=== PATIENT | female | born 1945 | race African-American/Black ===

== ENCOUNTER 2017-05-08 21:36 | Inpatient (IN) ==
[2017-05-08] MEDS ORDERED: LORazepam 2 MG/1 ML VIAL IV STA (22:01)
[2017-05-08] MEDS ORDERED: LORazepam 2 MG/1 ML VIAL ONE (22:02)
[2017-05-08] MEDS ORDERED: hydrALAZINE 20 MG/1 ML VIAL ONE (22:16)
[2017-05-08 22:22] LABS: Basophils # 0.1 10*3/uL (0.0-0.2); Basophils % 0.6 % (0.0-0.8); Eosinophils # 0.2 10*3/uL (0.0-0.87); Eosinophils % 2.3 % (0.00-10.9); Hematocrit 42.5 VOL% (35.7-47.0); Hemoglobin 14.9 GM/DL (12.0-16.0); Immature Granulocytes % 1.4 %; Immature Granulocytes Absolute 0.13 #; Lymphocytes # 1.7 10*3/uL (1.4-4.0); Lymphocytes % 18.2 % (21.3-54.2); Mean Corpuscular HGB Conc 35.1 GM/DL (32-36); Mean Corpuscular Hemoglobin 30 PG (27-34); Mean Platelet Volume 11.1 FL (9.6-12.0); Monocytes # 0.7 10*3/uL (0.11-0.8); Monocytes % 7.4 % (1.7-12.7); Neutrophils # 6.6 10*3/uL (1.4-7.4); Neutrophils % 70.1 % (38.7-73.9); Platelet Count 270 T/CUMM (130-400); Red Cell Distribution Width 12.4 % (9.3-17.3); White Blood Count 9.4 T/CUMM (4-12)
[2017-05-08 22:27] LABS: Apearance,Urine CLEAR (Clear); Bacteria,Urine Occasional /HPF (Few); Bilirubin,Urine Negative (Negative); Blood, Urine Small mg/dL (Negative); Glucose,Urine (UA) >=500 mg/dL (Negative); Ketones,Urine Negative (Negative); Nitrite,Urine Negative (Negative); Protein,Urine 100 MG/DL; RBC,Urine 19 /HPF (0-4); Squamous Epithelial Cell,Urine Occasional /HPF (0-10); Urine Color Yellow (Yellow); Urine Specific Gravity 1.024 (1.001-1.035); Urine Urobilinogen < 2.0 EU/DL (0.2-1.0); WBC,Urine 1 /HPF (0-6)
[2017-05-08 22:30] LABS: PT Patient Result 10.6 SECS; Partial Thromboplastin Time 23.5 SECS (0-40)
[2017-05-08 22:42] LABS: Alanine Aminotransferase 35 U/L (13-56); Albumin 3.5 G/DL (3.4-5.0); Alkaline Phosphatase 121 U/L (45-117); Aspartate Amino Transferase 15 U/L (0-37); Bilirubin,Total < 0.39 MG/DL (0.2-1.0); Blood Urea Nitrogen 15 MG/DL (7-18); Calcium 9.3 MG/DL (8.5-10.1); Glucose 382 MG/DL (74-106); Osmolality,Calculated 289.8 MOS/KG (273-304); Potassium 3.4 MMOL/L (3.5-5.1); Sodium 137 MMOL/L (136-145); Total Protein 8.1 G/DL (6.4-8.3)
[2017-05-08 22:44] LABS: Troponin I Only < 0.015 NG/ML (0.00-0.045)
[2017-05-08] MEDS ORDERED: SODIUM CHLORIDE 0.9% 1,000 ML IV STA (23:15)
[2017-05-09] MEDS ORDERED: ONDANSETRON 4 MG/2 ML VIAL IV PRN (00:16)
[2017-05-09] MEDS ORDERED: GLUCAGON 1 MG VIAL IM PRN (00:22)
[2017-05-09] MEDS ORDERED: DEXTROSE 50% 25 GM/50 ML SYRINGE IV PRN (00:22)
[2017-05-09] MEDS ORDERED: ASPIRIN 325 MG TABLET NG ONE (00:25)
[2017-05-09] MEDS ORDERED: hydrALAZINE 20 MG/1 ML VIAL IV STA (00:46)
[2017-05-09] MEDS: hydrALAZINE 20 MG/1 ML VIAL IV PRN (02:21)
[2017-05-09] MEDS: INSULIN LISPRO 100 UNIT/ML SUBCUT SCH ×3 (06:22→18:09)
[2017-05-09] MEDS ORDERED: ACETAMINOPHEN 325 MG/10.15 ML UDCUP PO PRN (06:26)
[2017-05-09] MEDS ORDERED: DILTIAZEM 50 MG/10 ML VIAL IV ONE (08:30)
[2017-05-09] MEDS: DILTIAZEM INJ 100 MG in SODIUM CHLORIDE 0.9% 100 ML IV SCH (08:52)
[2017-05-09] MEDS: ASPIRIN EC 81 MG TABLET PO SCH (08:59)
[2017-05-09] MEDS: ENOXAPARIN 40 MG/0.4 ML SYRINGE SUBCUT SCH (08:59)
[2017-05-09] MEDS: METOPROLOL TARTRATE 25 MG TABLET PO SCH ×2 (09:00→20:16)
[2017-05-09] MEDS: PANTOPRAZOLE 40 MG VIAL IV SCH (09:00)
[2017-05-09 09:29] LABS: Calcium 8.9 MG/DL (8.5-10.1); Magnesium 1.8 MG/DL (1.8-2.4); Osmolality,Calculated 290.4 MOS/KG (273-304); Potassium 3.3 MMOL/L (3.5-5.1)
[2017-05-09 09:38] LABS: Basophils % 0.2 % (0.0-0.8); Hematocrit 41.2 VOL% (35.7-47.0); Hemoglobin 14.5 GM/DL (12.0-16.0); Immature Granulocytes % 0.6 %; Lymphocytes % 6.4 % (21.3-54.2); Mean Corpuscular HGB Conc 35.2 GM/DL (32-36); Mean Corpuscular Hemoglobin 30 PG (27-34); Mean Corpuscular Volume 84.9 FL (87-102); Mean Platelet Volume 11.4 FL (9.6-12.0); Monocytes # 0.7 10*3/uL (0.11-0.8); Monocytes % 4.1 % (1.7-12.7); Neutrophils % 88.7 % (38.7-73.9); Platelet Count 287 T/CUMM (130-400); Red Blood Count 4.85 MC/CUMM (3.8-5.5); Red Cell Distribution Width 12.7 % (9.3-17.3); White Blood Count 15.8 T/CUMM (4-12)
[2017-05-09] MEDS: VANCOMYCIN INJ 1,000 MG in SODIUM CHLORIDE 0.9% 250 ML IV SCH ×2 (09:49→22:39)
[2017-05-09] MEDS: POTASSIUM CHLORIDE 20 MEQ/15 ML UDCUP PER TUBE PRN ×4 (10:00→16:13)
[2017-05-09 10:01] LABS: Calcium 8.8 MG/DL (8.5-10.1); Osmolality,Calculated 290.4 MOS/KG (273-304); Potassium 3.2 MMOL/L (3.5-5.1)
[2017-05-09] MEDS: PIPERACILLIN/TAZOBACTAM 3,375 MG in SODIUM CHLORIDE 0.9% 100 ML IV SCH ×2 (11:03→18:09)
[2017-05-09] MEDS ORDERED: LORazepam 2 MG/1 ML VIAL IV ONE (14:50)
[2017-05-09] MEDS ORDERED: LORazepam 2 MG/1 ML VIAL ONE (14:53)
[2017-05-09] MEDS ORDERED: MAGNESIUM SULF RIDER 2 GM in PREMIX 1 EACH IV ONE (15:30)
[2017-05-09] MEDS ORDERED: POTASSIUM CHLORIDE RIDER 10 MEQ in PREMIX 1 EACH IV ONE (16:00)
[2017-05-09] MEDS: ASCORBIC ACID 500 MG TABLET PO SCH ×2 (16:24→20:16)
[2017-05-09] MEDS: LORazepam 0.5 MG TABLET PO PRN (21:44)
[2017-05-10] MEDS: INSULIN LISPRO 100 UNIT/ML SUBCUT SCH ×4 (01:13→17:13)
[2017-05-10] MEDS: PIPERACILLIN/TAZOBACTAM 3,375 MG in SODIUM CHLORIDE 0.9% 100 ML IV SCH ×2 (02:40→11:00)
[2017-05-10] MEDS ORDERED: LORazepam 2 MG/1 ML VIAL IV ONE (03:15)
[2017-05-10] MEDS ORDERED: LORazepam 2 MG/1 ML VIAL ONE (03:16)
[2017-05-10 05:12] LABS: Basophils # 0.1 10*3/uL (0.0-0.2); Basophils % 0.4 % (0.0-0.8); Eosinophils # 0.1 10*3/uL (0.0-0.87); Eosinophils % 0.8 % (0.00-10.9); Hematocrit 39.7 VOL% (35.7-47.0); Hemoglobin 13.5 GM/DL (12.0-16.0); Immature Granulocytes % 0.5 %; Immature Granulocytes Absolute 0.06 #; Lymphocytes # 1.4 10*3/uL (1.4-4.0); Lymphocytes % 10.7 % (21.3-54.2); Mean Corpuscular Hemoglobin 30 PG (27-34); Mean Corpuscular Volume 87.8 FL (87-102); Mean Platelet Volume 11.2 FL (9.6-12.0); Monocytes # 1.4 10*3/uL (0.11-0.8); Monocytes % 10.5 % (1.7-12.7); Neutrophils # 10.2 10*3/uL (1.4-7.4); Neutrophils % 77.1 % (38.7-73.9); Platelet Count 228 T/CUMM (130-400); Red Blood Count 4.52 MC/CUMM (3.8-5.5); White Blood Count 13.2 T/CUMM (4-12)
[2017-05-10 05:42] LABS: Calcium 8.8 MG/DL (8.5-10.1); Magnesium 2.6 MG/DL (1.8-2.4); Potassium 3.9 MMOL/L (3.5-5.1)
[2017-05-10 05:52] LABS: Calcium 8.7 MG/DL (8.5-10.1)
[2017-05-10 06:02] LABS: Free T4 (Free Thyroxine) 1.03 NG/DL (0.76-1.46); Risk Ratio 5.67; Thyroid Stimulating Hormone 0.158 uIU/ml (0.358-3.74); VLDL CHOLESTEROL 38.6 MG/DL
[2017-05-10] MEDS: DILTIAZEM INJ 100 MG in SODIUM CHLORIDE 0.9% 100 ML IV SCH (07:45)
[2017-05-10] MEDS: METOPROLOL TARTRATE 25 MG TABLET PO SCH (08:22)
[2017-05-10] MEDS: PANTOPRAZOLE 40 MG VIAL IV SCH (08:22)
[2017-05-10] MEDS: ASPIRIN EC 81 MG TABLET PO SCH (08:22)
[2017-05-10] MEDS: ASCORBIC ACID 500 MG TABLET PO SCH ×2 (08:22→22:07)
[2017-05-10] MEDS: ENOXAPARIN 40 MG/0.4 ML SYRINGE SUBCUT SCH (08:22)
[2017-05-10] MEDS: VANCOMYCIN INJ 1,000 MG in SODIUM CHLORIDE 0.9% 250 ML IV SCH ×2 (08:54→22:08)
[2017-05-10] MEDS: LORazepam 0.5 MG TABLET PO PRN ×2 (10:44→18:45)
[2017-05-10] MEDS: amLODIPine 10 MG TABLET PER TUBE SCH (12:30)
[2017-05-10] MEDS: CARVEDILOL 12.5 MG TABLET PO SCH ×2 (12:30→22:06)
[2017-05-10] MEDS: ZIPRASIDONE 20 MG/1 ML VIAL IM PRN (19:20)
[2017-05-11] MEDS: hydrALAZINE 20 MG/1 ML VIAL IV PRN ×2 (00:09→09:47)
[2017-05-11] MEDS: INSULIN LISPRO 100 UNIT/ML SUBCUT SCH ×4 (00:11→17:29)
[2017-05-11 06:25] LABS: Albumin (SPE) 3.8 G/DL (3.2-5.3); Albumin (SPE) Rel % 55.1 %; Alpha 1 (SPE) 0.2 G/DL (0.1-0.4); Alpha 1 (SPE) Rel % 3.1 %; Alpha 2 (SPE) 0.7 G/DL (0.4-1.0); Alpha 2 (SPE) Rel % 10.3 %; Beta (SPE) 0.9 G/DL (0.5-1.1); Beta (SPE) Rel % 13.3 %; Gamma (SPE) 1.3 G/DL (0.7-1.7); Gamma (SPE) Rel % 18.2 %; Total Protein (Chem) 6.9 G/DL (6.4-8.3)
[2017-05-11 06:48] LABS: Basophils # 0.1 10*3/uL (0.0-0.2); Basophils % 0.6 % (0.0-0.8); Eosinophils # 0.2 10*3/uL (0.0-0.87); Eosinophils % 1.6 % (0.00-10.9); Immature Granulocytes Absolute 0.12 #; Lymphocytes # 1.8 10*3/uL (1.4-4.0); Lymphocytes % 14.6 % (21.3-54.2); Mean Corpuscular HGB Conc 34.1 GM/DL (32-36); Mean Corpuscular Hemoglobin 30 PG (27-34); Mean Platelet Volume 11.6 FL (9.6-12.0); Monocytes # 1.1 10*3/uL (0.11-0.8); Monocytes % 9.3 % (1.7-12.7); Neutrophils # 8.8 10*3/uL (1.4-7.4); Neutrophils % 72.9 % (38.7-73.9); Platelet Count 228 T/CUMM (130-400); Red Blood Count 4.71 MC/CUMM (3.8-5.5); Red Cell Distribution Width 12.5 % (9.3-17.3); White Blood Count 12.1 T/CUMM (4-12)
[2017-05-11 07:10] LABS: Calcium 8.5 MG/DL (8.5-10.1); Osmolality,Calculated 279.4 MOS/KG (273-304); Potassium 3.4 MMOL/L (3.5-5.1)
[2017-05-11] MEDS: DILTIAZEM INJ 100 MG in SODIUM CHLORIDE 0.9% 100 ML IV SCH (08:44)
[2017-05-11] MEDS: ASCORBIC ACID 500 MG TABLET PO SCH ×2 (08:52→20:32)
[2017-05-11] MEDS: amLODIPine 10 MG TABLET PER TUBE SCH (08:52)
[2017-05-11] MEDS: ASPIRIN EC 81 MG TABLET PO SCH (08:53)
[2017-05-11] MEDS: CARVEDILOL 12.5 MG TABLET PO SCH (08:53)
[2017-05-11] MEDS: PANTOPRAZOLE 40 MG VIAL IV SCH (08:54)
[2017-05-11] MEDS: VANCOMYCIN INJ 1,000 MG in SODIUM CHLORIDE 0.9% 250 ML IV SCH (10:35)
[2017-05-11] MEDS ORDERED: LORazepam 2 MG/1 ML VIAL IV ONE (10:47)
[2017-05-11] MEDS ORDERED: POTASSIUM CHLORIDE 20 MEQ/15 ML UDCUP PO PRN (11:05)
[2017-05-11] MEDS: amLODIPine 10 MG TABLET PO SCH (12:39)
[2017-05-11 16:35] LABS: Appearance,CSF Clear; Red Blood Cell,CSF 6 C/CUMM; White Blood Cell,CSF < 1 C/CUMM
[2017-05-11 18:17] LABS: Lymphocytes,CSF 76 %; Monocytes,CSF 8 %; Neutrophils,CSF 16 %
[2017-05-11] MEDS: CARVEDILOL 25 MG TABLET PO SCH (20:32)
[2017-05-11] MEDS: ROSUVASTATIN 10 MG TABLET PO SCH (20:32)
[2017-05-11] MEDS: ZIPRASIDONE 20 MG/1 ML VIAL IM PRN (20:32)
[2017-05-12] MEDS: VANCOMYCIN INJ 1,000 MG in SODIUM CHLORIDE 0.9% 250 ML IV SCH ×2 (00:28→12:31)
[2017-05-12] MEDS: INSULIN LISPRO 100 UNIT/ML SUBCUT SCH ×4 (00:35→18:19)
[2017-05-12 06:18] LABS: Basophils % 0.3 % (0.0-0.8); Eosinophils # 0.4 10*3/uL (0.0-0.87); Eosinophils % 4.3 % (0.00-10.9); Hematocrit 37.9 VOL% (35.7-47.0); Hemoglobin 13.2 GM/DL (12.0-16.0); Immature Granulocytes % 0.4 %; Immature Granulocytes Absolute 0.04 #; Lymphocytes # 1.5 10*3/uL (1.4-4.0); Lymphocytes % 16.5 % (21.3-54.2); Mean Corpuscular HGB Conc 34.8 GM/DL (32-36); Mean Corpuscular Hemoglobin 30 PG (27-34); Mean Corpuscular Volume 85.2 FL (87-102); Mean Platelet Volume 11.5 FL (9.6-12.0); Monocytes % 11.4 % (1.7-12.7); Neutrophils # 6.1 10*3/uL (1.4-7.4); Neutrophils % 67.1 % (38.7-73.9); Platelet Count 229 T/CUMM (130-400); Red Blood Count 4.45 MC/CUMM (3.8-5.5); Red Cell Distribution Width 12.4 % (9.3-17.3); White Blood Count 9.1 T/CUMM (4-12)
[2017-05-12 06:46] LABS: Calcium 8.7 MG/DL (8.5-10.1); Magnesium 2.3 MG/DL (1.8-2.4); Osmolality,Calculated 282.4 MOS/KG (273-304); Potassium 3.2 MMOL/L (3.5-5.1)
[2017-05-12 06:52] LABS: Calcium 8.4 MG/DL (8.5-10.1); Osmolality,Calculated 284.3 MOS/KG (273-304); Potassium 3.5 MMOL/L (3.5-5.1)
[2017-05-12] MEDS ORDERED: APIXABAN 5 MG TABLET PO SCH (09:00)
[2017-05-12] MEDS: ASCORBIC ACID 500 MG TABLET PO SCH ×2 (09:35→21:28)
[2017-05-12] MEDS: CARVEDILOL 25 MG TABLET PO SCH ×2 (09:35→21:28)
[2017-05-12] MEDS: amLODIPine 10 MG TABLET PO SCH (09:35)
[2017-05-12] MEDS: sitaGLIPtin 25 MG TABLET PO SCH (09:35)
[2017-05-12] MEDS ORDERED: POTASSIUM CHLORIDE 20 MEQ TABLET PO ONE (12:16)
[2017-05-12] MEDS: ROSUVASTATIN 10 MG TABLET PO SCH (21:28)
[2017-05-12] MEDS: ZIPRASIDONE 20 MG/1 ML VIAL IM PRN (21:36)
[2017-05-12] MEDS: LORazepam 0.5 MG TABLET PO PRN (23:14)
[2017-05-13] MEDS: INSULIN LISPRO 100 UNIT/ML SUBCUT SCH ×2 (00:31→06:19)
[2017-05-13] MEDS: VANCOMYCIN INJ 1,000 MG in SODIUM CHLORIDE 0.9% 250 ML IV SCH (00:34)
[2017-05-13 06:07] LABS: Basophils % 0.4 % (0.0-0.8); Eosinophils # 0.4 10*3/uL (0.0-0.87); Eosinophils % 4.3 % (0.00-10.9); Hemoglobin 13.3 GM/DL (12.0-16.0); Immature Granulocytes % 0.5 %; Immature Granulocytes Absolute 0.05 #; Lymphocytes # 1.4 10*3/uL (1.4-4.0); Lymphocytes % 13.5 % (21.3-54.2); Mean Corpuscular Hemoglobin 30 PG (27-34); Mean Corpuscular Volume 85.2 FL (87-102); Mean Platelet Volume 10.7 FL (9.6-12.0); Monocytes # 1.5 10*3/uL (0.11-0.8); Monocytes % 14.1 % (1.7-12.7); Neutrophils # 6.9 10*3/uL (1.4-7.4); Neutrophils % 67.2 % (38.7-73.9); Platelet Count 240 T/CUMM (130-400); Red Blood Count 4.46 MC/CUMM (3.8-5.5); Red Cell Distribution Width 12.3 % (9.3-17.3); White Blood Count 10.3 T/CUMM (4-12)
[2017-05-13 06:42] LABS: Calcium 8.8 MG/DL (8.5-10.1); Osmolality,Calculated 284.1 MOS/KG (273-304); Potassium 3.3 MMOL/L (3.5-5.1)
[2017-05-13 06:43] LABS: Calcium 8.9 MG/DL (8.5-10.1); Osmolality,Calculated 282.3 MOS/KG (273-304); Potassium 3.2 MMOL/L (3.5-5.1)
[2017-05-13] MEDS: sitaGLIPtin 25 MG TABLET PO SCH (08:46)
[2017-05-13] MEDS: CARVEDILOL 25 MG TABLET PO SCH (08:46)
[2017-05-13] MEDS: amLODIPine 10 MG TABLET PO SCH (08:46)
[2017-05-13] MEDS: ASCORBIC ACID 500 MG TABLET PO SCH (08:46)
[2017-05-13] MEDS ORDERED: ASPIRIN EC 81 MG TABLET PO SCH (09:00)
[2017-05-13] MEDS ORDERED: POTASSIUM CHLORIDE 20 MEQ TABLET PO SCH (09:00)
[2017-05-13] MEDS ORDERED: DEXTROSE 50% 25 GM/50 ML VIAL IV PRN (11:00)
[2017-05-13 11:59] VITALS: BP 142/78
[2017-05-17] MEDS ORDERED: cloNIDine 0.3 MG/24 HR PATCH TRANSDERM SCH (09:00)
== END 2017-05-13 12:38 | disposition home health service (06) | DRG 690 ==
LOC: EDBD → EDUNIT# → N.ED 21:36 → N.EDINP 05-09 00:18 → SUATTDRO 05-09 00:18 → N.ICU 05-09 01:13 → N.TELEN 05-11 17:51
PROVIDERS: ADMIT Internal Medicine; ATTEND Internal Medicine

== ENCOUNTER 2018-06-14 09:35 | Inpatient (IN) ==
[2018-06-14] MEDS ORDERED: ONDANSETRON 4 MG/2 ML VIAL IV STA (10:27)
[2018-06-14] MEDS ORDERED: SODIUM CHLORIDE 0.9% 500 ML IV STA (10:27)
[2018-06-14 10:47] LABS: Apearance,Urine CLEAR (Clear); Bilirubin,Urine Negative (Negative); Blood, Urine Negative (Negative); Glucose,Urine (UA) Negative (Negative); Ketones,Urine Negative (Negative); Mucus,Urine Occasional /LPF (Occasional); Nitrite,Urine Negative (Negative); Protein,Urine >=500 MG/DL; RBC,Urine 1 /HPF (0-4); Squamous Epithelial Cell,Urine Occasional /HPF (0-10); Urine Color Yellow (Yellow); Urine Specific Gravity 1.012 (1.001-1.035); Urine Urobilinogen < 2.0 EU/DL (0.2-1.0); WBC,Urine 3 /HPF (0-6)
[2018-06-14 11:02] LABS: Barbiturates Screen,Urine Negative (Negative); Benzodiazepines Screen,Urine Positive (Negative); Cannabinoid Screen,Urine Negative (Negative); Opiate Screen,Urine Negative (Negative); Phencyclidine Screen,Urine Negative (Negative)
[2018-06-14 11:10] LABS: Basophils # 0.1 10*3/uL (0.0-0.2); Basophils % 0.4 % (0.0-0.8); Eosinophils # 0.2 10*3/uL (0.0-0.87); Eosinophils % 1.1 % (0.00-10.9); Hematocrit 43.1 VOL% (35.7-47.0); Hemoglobin 14.4 GM/DL (12.0-16.0); Immature Granulocytes % 0.6 %; Immature Granulocytes Absolute 0.09 #; Lymphocytes # 1.1 10*3/uL (1.4-4.0); Lymphocytes % 7.2 % (21.3-54.2); Mean Corpuscular HGB Conc 33.4 GM/DL (32-36); Mean Corpuscular Hemoglobin 30 PG (27-34); Monocytes # 0.9 10*3/uL (0.11-0.8); Monocytes % 5.7 % (1.7-12.7); Neutrophils # 12.6 10*3/uL (1.4-7.4); Platelet Count 218 T/CUMM (130-400); Red Blood Count 4.79 MC/CUMM (3.8-5.5); Red Cell Distribution Width 12.6 % (9.3-17.3); White Blood Count 14.8 T/CUMM (4-12)
[2018-06-14 11:15] LABS: INR 1.1; PT Patient Result 11.3 SECS
[2018-06-14 11:28] LABS: Platelet Estimate Normal
[2018-06-14 11:33] LABS: Ammonia 31 UMOL/L (11-32)
[2018-06-14 11:37] LABS: Alanine Aminotransferase 24 U/L (13-56); Albumin 3.9 G/DL (3.4-5.0); Alkaline Phosphatase 68 U/L (45-117); Aspartate Amino Transferase 28 U/L (0-37); Blood Urea Nitrogen 10 MG/DL (7-18); Calcium 9.1 MG/DL (8.5-10.1); Glucose 162 MG/DL (74-106); Osmolality,Calculated 281.4 MOS/KG (273-304); Potassium 3.5 MMOL/L (3.5-5.1); Sodium 140 MMOL/L (136-145); Total Protein 8.2 G/DL (6.4-8.3)
[2018-06-14 12:00] LABS: Troponin I < 0.015 NG/ML (0.00-0.045)
[2018-06-14] MEDS ORDERED: ONDANSETRON 4 MG/2 ML VIAL IV PRN (15:15)
[2018-06-14] MEDS ORDERED: LABETALOL 20 MG/4 ML SYRINGE IV PRN (15:15)
[2018-06-14] MEDS: SODIUM CHLORIDE 0.9% 1,000 ML IV SCH (16:30)
[2018-06-14] MEDS: CLOPIDOGREL 75 MG TABLET PO SCH (16:30)
[2018-06-14] MEDS ORDERED: GLUCAGON 1 MG VIAL IM PRN ×2 (16:52→17:53)
[2018-06-14] MEDS ORDERED: DEXTROSE 50% 25 GM/50 ML VIAL IV PRN ×2 (16:52→17:53)
[2018-06-14] MEDS: INSULIN LISPRO 100 UNIT/ML SUBCUT SCH (22:32)
[2018-06-15] MEDS: SODIUM CHLORIDE 0.9% 1,000 ML IV SCH ×3 (01:39→16:51)
[2018-06-15 04:19] LABS: Basophils # 0.1 10*3/uL (0.0-0.2); Basophils % 0.6 % (0.0-0.8); Eosinophils # 0.2 10*3/uL (0.0-0.87); Eosinophils % 2.4 % (0.00-10.9); Hematocrit 35.1 VOL% (35.7-47.0); Hemoglobin 11.8 GM/DL (12.0-16.0); Immature Granulocytes % 0.4 %; Immature Granulocytes Absolute 0.04 #; Lymphocytes # 1.5 10*3/uL (1.4-4.0); Lymphocytes % 16.8 % (21.3-54.2); Mean Corpuscular HGB Conc 33.6 GM/DL (32-36); Mean Corpuscular Hemoglobin 30 PG (27-34); Mean Corpuscular Volume 89.1 FL (87-102); Mean Platelet Volume 12.1 FL (9.6-12.0); Monocytes # 1.2 10*3/uL (0.11-0.8); Monocytes % 12.9 % (1.7-12.7); Neutrophils % 66.9 % (38.7-73.9); Platelet Count 202 T/CUMM (130-400); Red Blood Count 3.94 MC/CUMM (3.8-5.5); Red Cell Distribution Width 12.7 % (9.3-17.3)
[2018-06-15 04:59] LABS: Alanine Aminotransferase 21 U/L (13-56); Albumin 2.7 G/DL (3.4-5.0); Alkaline Phosphatase 57 U/L (45-117); Aspartate Amino Transferase 35 U/L (0-37); Bilirubin,Total < 0.39 MG/DL (0.2-1.0); Blood Urea Nitrogen 7 MG/DL (7-18); Calcium 8.2 MG/DL (8.5-10.1); Cholesterol 181 MG/DL (50-200); Glucose 114 MG/DL (74-106); HDL Cholesterol 32 MG/DL (40-60); Osmolality,Calculated 279.3 MOS/KG (273-304); Potassium 3.5 MMOL/L (3.5-5.1); Risk Ratio 5.66; Sodium 141 MMOL/L (136-145); Total Protein 6.8 G/DL (6.4-8.3); Triglycerides 168 MG/DL (2-150); VLDL CHOLESTEROL 33.6 MG/DL
[2018-06-15] MEDS ORDERED: LORazepam 2 MG/1 ML VIAL IV ONE (07:30)
[2018-06-15] MEDS: INSULIN LISPRO 100 UNIT/ML SUBCUT SCH ×3 (08:08→16:51)
[2018-06-15] MEDS: CLOPIDOGREL 75 MG TABLET PO SCH (09:21)
[2018-06-15] MEDS: PANTOPRAZOLE 40 MG TABLET PO SCH (09:21)
[2018-06-15] MEDS: ASPIRIN EC 81 MG TABLET PO SCH (09:21)
[2018-06-15] MEDS: levETIRAcetam 500 MG TABLET PO SCH (10:18)
[2018-06-15] MEDS: CARVEDILOL 25 MG TABLET PO SCH (10:18)
[2018-06-15] MEDS: amLODIPine 10 MG TABLET PO SCH (10:18)
[2018-06-16] MEDS: INSULIN LISPRO 100 UNIT/ML SUBCUT SCH ×5 (00:08→22:12)
[2018-06-16] MEDS: CARVEDILOL 25 MG TABLET PO SCH ×3 (00:15→21:52)
[2018-06-16] MEDS: levETIRAcetam 500 MG TABLET PO SCH ×3 (00:15→21:52)
[2018-06-16] MEDS: ATORVASTATIN 20 MG TABLET PO SCH ×2 (00:15→21:52)
[2018-06-16] MEDS: SODIUM CHLORIDE 0.9% 1,000 ML IV SCH ×3 (04:47→21:56)
[2018-06-16 05:47] LABS: Basophils # 0.1 10*3/uL (0.0-0.2); Basophils % 0.5 % (0.0-0.8); Eosinophils # 0.4 10*3/uL (0.0-0.87); Eosinophils % 3.2 % (0.00-10.9); Hematocrit 36.6 VOL% (35.7-47.0); Hemoglobin 12.2 GM/DL (12.0-16.0); Immature Granulocytes % 0.4 %; Immature Granulocytes Absolute 0.05 #; Lymphocytes # 1.4 10*3/uL (1.4-4.0); Lymphocytes % 11.8 % (21.3-54.2); Mean Corpuscular HGB Conc 33.3 GM/DL (32-36); Mean Corpuscular Hemoglobin 30 PG (27-34); Mean Corpuscular Volume 89.7 FL (87-102); Mean Platelet Volume 10.9 FL (9.6-12.0); Monocytes # 1.2 10*3/uL (0.11-0.8); Monocytes % 10.2 % (1.7-12.7); Neutrophils # 8.6 10*3/uL (1.4-7.4); Neutrophils % 73.9 % (38.7-73.9); Platelet Count 243 T/CUMM (130-400); Red Blood Count 4.08 MC/CUMM (3.8-5.5); Red Cell Distribution Width 12.6 % (9.3-17.3); White Blood Count 11.7 T/CUMM (4-12)
[2018-06-16 06:07] LABS: Albumin 3.1 G/DL (3.4-5.0); Bilirubin,Total 0.8 MG/DL (0.2-1.0); Calcium 8.6 MG/DL (8.5-10.1); Osmolality,Calculated 281.3 MOS/KG (273-304); Potassium 3.3 MMOL/L (3.5-5.1); Total Protein 7.2 G/DL (6.4-8.3)
[2018-06-16] MEDS: ASPIRIN EC 81 MG TABLET PO SCH (09:08)
[2018-06-16] MEDS: PANTOPRAZOLE 40 MG TABLET PO SCH (09:08)
[2018-06-16] MEDS: CLOPIDOGREL 75 MG TABLET PO SCH (09:08)
[2018-06-16] MEDS: amLODIPine 10 MG TABLET PO SCH (09:08)
[2018-06-16] MEDS: POTASSIUM CHLORIDE 20 MEQ TABLET PO PRN ×3 (09:16→14:45)
[2018-06-16] MEDS ORDERED: ACETAMINOPHEN 325 MG TABLET PO PRN (13:25)
[2018-06-17 00:33] LABS: Apearance,Urine CLOUDY (Clear); Bacteria,Urine Many /HPF (Few); Bilirubin,Urine Negative (Negative); Blood, Urine Large mg/dL (Negative); Glucose,Urine (UA) 150 mg/dL (Negative); Ketones,Urine Negative (Negative); Nitrite,Urine Positive (Negative); Protein,Urine 30 MG/DL; RBC,Urine 705 /HPF (0-4); Squamous Epithelial Cell,Urine Few /HPF (0-10); Urine Color Yellow (Yellow); Urine Specific Gravity 1.013 (1.001-1.035); Urine Urobilinogen < 2.0 EU/DL (0.2-1.0); WBC,Urine 165 /HPF (0-6)
[2018-06-17] MEDS: SODIUM CHLORIDE 0.9% 1,000 ML IV SCH ×3 (04:41→18:09)
[2018-06-17 05:02] LABS: Basophils % 0.4 % (0.0-0.8); Eosinophils # 0.4 10*3/uL (0.0-0.87); Eosinophils % 4.1 % (0.00-10.9); Hematocrit 36.2 VOL% (35.7-47.0); Hemoglobin 11.8 GM/DL (12.0-16.0); Immature Granulocytes % 0.4 %; Immature Granulocytes Absolute 0.04 #; Lymphocytes # 1.5 10*3/uL (1.4-4.0); Lymphocytes % 16.1 % (21.3-54.2); Mean Corpuscular HGB Conc 32.6 GM/DL (32-36); Mean Corpuscular Hemoglobin 29 PG (27-34); Mean Platelet Volume 11.4 FL (9.6-12.0); Neutrophils # 6.3 10*3/uL (1.4-7.4); Platelet Count 248 T/CUMM (130-400); Red Blood Count 4.02 MC/CUMM (3.8-5.5); Red Cell Distribution Width 12.6 % (9.3-17.3); White Blood Count 9.3 T/CUMM (4-12)
[2018-06-17 05:20] LABS: Bilirubin,Total 0.7 MG/DL (0.2-1.0); Calcium 8.6 MG/DL (8.5-10.1); Osmolality,Calculated 286.1 MOS/KG (273-304); Potassium 3.4 MMOL/L (3.5-5.1)
[2018-06-17] MEDS: cefTRIAXone 1,000 MG in SYRINGE 1 EACH IV SCH (06:10)
[2018-06-17] MEDS: INSULIN LISPRO 100 UNIT/ML SUBCUT SCH ×4 (08:40→20:15)
[2018-06-17] MEDS: levETIRAcetam 500 MG TABLET PO SCH ×2 (09:21→20:12)
[2018-06-17] MEDS: ASPIRIN EC 81 MG TABLET PO SCH (09:21)
[2018-06-17] MEDS: amLODIPine 10 MG TABLET PO SCH (09:21)
[2018-06-17] MEDS: PANTOPRAZOLE 40 MG TABLET PO SCH (09:21)
[2018-06-17] MEDS: CLOPIDOGREL 75 MG TABLET PO SCH (09:21)
[2018-06-17] MEDS: CARVEDILOL 25 MG TABLET PO SCH ×2 (09:21→20:12)
[2018-06-17] MEDS: POTASSIUM CHLORIDE 20 MEQ TABLET PO PRN ×3 (09:25→13:36)
[2018-06-17] MEDS ORDERED: ATORVASTATIN 20 MG TABLET PO SCH (14:08)
[2018-06-18] MEDS: SODIUM CHLORIDE 0.9% 1,000 ML IV SCH (03:03)
[2018-06-18] MEDS: cefTRIAXone 1,000 MG in SYRINGE 1 EACH IV SCH (05:35)
[2018-06-18] MEDS: ASPIRIN EC 81 MG TABLET PO SCH (09:06)
[2018-06-18] MEDS: PANTOPRAZOLE 40 MG TABLET PO SCH (09:06)
[2018-06-18] MEDS: INSULIN LISPRO 100 UNIT/ML SUBCUT SCH ×2 (09:06→11:10)
[2018-06-18] MEDS: levETIRAcetam 500 MG TABLET PO SCH (09:06)
[2018-06-18] MEDS: CLOPIDOGREL 75 MG TABLET PO SCH (09:06)
[2018-06-18] MEDS: amLODIPine 10 MG TABLET PO SCH (09:06)
[2018-06-18] MEDS: CARVEDILOL 25 MG TABLET PO SCH (09:06)
[2018-06-18 11:52] VITALS: BP 144/92
== END 2018-06-18 11:50 | disposition home health service (06) | DRG 65 ==
LOC: EDUNIT# → EDBD → N.ED 09:35 → SUATTDRO 14:19 → N.EDINP 14:19 → N.ICU 14:38 → N.5E 06-15 11:46
PROVIDERS: ADMIT Internal Medicine; ATTEND Internal Medicine Infectious Disease

== ENCOUNTER 2019-07-01 09:57 | Inpatient (IN) ==
[2019-07-01] MEDS ORDERED: LORazepam 2 MG/1 ML VIAL IV STA (10:10)
[2019-07-01] MEDS ORDERED: FOSPHENYTOIN 1,000 MG.PE in SODIUM CHLORIDE 0.9% 250 ML IV STA (10:10)
[2019-07-01] MEDS ORDERED: hydrALAZINE 20 MG/1 ML VIAL IV STA (10:21)
[2019-07-01 10:31] LABS: Basophils % 0.3 % (0.0-0.8); Eosinophils % 0.1 % (0.00-10.9); Hematocrit 39.8 VOL% (35.7-47.0); Hemoglobin 13.4 GM/DL (12.0-16.0); Immature Granulocytes % 0.5 %; Immature Granulocytes Absolute 0.07 #; Lymphocytes % 6.5 % (21.3-54.2); Mean Corpuscular HGB Conc 33.7 GM/DL (32-36); Mean Corpuscular Volume 88.2 FL (87-102); Monocytes % 2.9 % (1.7-12.7); Neutrophils % 89.7 % (38.7-73.9); Platelet Count 276 T/CUMM (130-400); Red Blood Count 4.51 MC/CUMM (3.8-5.5); Red Cell Distribution Width 12.3 % (9.3-17.3); White Blood Count 15.5 T/CUMM (4-12)
[2019-07-01 10:54] LABS: Alanine Aminotransferase 26 U/L (13-56); Albumin 4.2 G/DL (3.4-5.0); Alkaline Phosphatase 79 U/L (45-117); Aspartate Amino Transferase 24 U/L (0-37); Blood Urea Nitrogen 15 MG/DL (7-18); Calcium 9.4 MG/DL (8.5-10.1); Glucose 114 MG/DL (74-106); Osmolality,Calculated 274.8 MOS/KG (273-304); Total Protein 8.4 G/DL (6.4-8.3); Troponin I < 0.015 NG/ML (0.00-0.045)
[2019-07-01 10:56] LABS: Estimated Glom Filtration Rate 0 ML/MIN
[2019-07-01] MEDS ORDERED: FOSPHENYTOIN 500 MG.PE/10 ML VIAL ONE (10:56)
[2019-07-01 11:06] LABS: Prolactin 23.1 NG/ML
[2019-07-01] MEDS ORDERED: MAGNESIUM SULF RIDER 2 GM in PREMIX 1 EACH IV STA (11:27)
[2019-07-01 11:30] LABS: Apearance,Urine CLEAR (Clear); Bacteria,Urine Occasional /HPF (Few); Bilirubin,Urine Negative (Negative); Blood, Urine Small mg/dL (Negative); Glucose,Urine (UA) Negative (Negative); Ketones,Urine 20 mg/dL (Negative); Mucus,Urine Occasional /LPF (Occasional); Nitrite,Urine Negative (Negative); Protein,Urine 30 MG/DL; RBC,Urine 1 /HPF (0-4); Urine Color Straw (Yellow); Urine Specific Gravity 1.012 (1.001-1.035); Urine Urobilinogen < 2.0 EU/DL (0.2-1.0); WBC,Urine <1 /HPF (0-6)
[2019-07-01 13:05] LABS: Barbiturates Screen,Urine Negative (Negative); Benzodiazepines Screen,Urine Positive (Negative); Cannabinoid Screen,Urine Negative (Negative); Opiate Screen,Urine Negative (Negative); Phencyclidine Screen,Urine Negative (Negative)
[2019-07-01] MEDS ORDERED: ONDANSETRON 4 MG/2 ML VIAL IV PRN (13:44)
[2019-07-01] MEDS ORDERED: ACETAMINOPHEN 325 MG TABLET PO PRN (13:44)
[2019-07-01] MEDS ORDERED: DEXTROSE 10% 250 ML BAG IV PRN (13:46)
[2019-07-01] MEDS ORDERED: GLUCAGON 1 MG VIAL IM PRN (13:46)
[2019-07-01] MEDS ORDERED: INFLUENZA VIRUS VACCINE 0.5 ML SYRINGE IM ONE (16:43)
[2019-07-01] MEDS ORDERED: PNEUMOCOCCAL VACCINE (13 VALENT) 0.5 ML SYRINGE IM ONE (16:47)
[2019-07-01] MEDS: INSULIN LISPRO 100 UNIT/ML SUBCUT SCH ×2 (17:24→22:16)
[2019-07-01] MEDS: carvediloL 25 MG TABLET PO SCH (22:17)
[2019-07-01] MEDS: ATORVASTATIN 20 MG TABLET PO SCH (22:17)
[2019-07-01] MEDS: MAGNESIUM CHLORIDE 64 MG TABLET PO SCH (22:17)
[2019-07-02 05:13] LABS: Basophils # 0.1 10*3/uL (0.0-0.2); Basophils % 0.5 % (0.0-0.8); Hematocrit 38.2 VOL% (35.7-47.0); Hemoglobin 12.8 GM/DL (12.0-16.0); Immature Granulocytes % 0.5 %; Immature Granulocytes Absolute 0.07 #; Lymphocytes # 1.5 10*3/uL (1.4-4.0); Lymphocytes % 10.2 % (21.3-54.2); Mean Corpuscular HGB Conc 33.5 GM/DL (32-36); Mean Corpuscular Volume 87.8 FL (87-102); Monocytes % 13.9 % (1.7-12.7); Neutrophils % 74.9 % (38.7-73.9); Platelet Count 271 T/CUMM (130-400); Red Blood Count 4.35 MC/CUMM (3.8-5.5); Red Cell Distribution Width 12.7 % (9.3-17.3); White Blood Count 14.5 T/CUMM (4-12)
[2019-07-02 05:42] LABS: Risk Ratio 3.68; VLDL CHOLESTEROL 22.2 MG/DL
[2019-07-02 05:51] LABS: Albumin 3.6 G/DL (3.4-5.0); Bilirubin,Total 0.7 MG/DL (0.2-1.0); Calcium 8.9 MG/DL (8.5-10.1); Osmolality,Calculated 277.7 MOS/KG (273-304); Thyroid Stimulating Hormone 0.341 uIU/ml (0.358-3.74); Total Protein 7.7 G/DL (6.4-8.3)
[2019-07-02] MEDS: INSULIN LISPRO 100 UNIT/ML SUBCUT SCH ×4 (08:00→21:05)
[2019-07-02 08:57] LABS: Free T4 (Free Thyroxine) 1.11 NG/DL (0.76-1.46)
[2019-07-02] MEDS ORDERED: CLOPIDOGREL 75 MG TABLET PO SCH (09:00)
[2019-07-02] MEDS ORDERED: PANTOPRAZOLE 40 MG TABLET PO SCH (09:00)
[2019-07-02] MEDS: carvediloL 25 MG TABLET PO SCH ×2 (10:04→18:03)
[2019-07-02] MEDS: POTASSIUM CHLORIDE 8 MEQ CAPSULE PO SCH (10:05)
[2019-07-02] MEDS: FERROUS SULFATE 325 MG TABLET PO SCH (10:05)
[2019-07-02] MEDS: MAGNESIUM CHLORIDE 64 MG TABLET PO SCH ×2 (10:06→21:06)
[2019-07-02 10:16] LABS: Apearance,Urine Slightly Hazy (Clear); Bacteria,Urine Occasional /HPF (Few); Bilirubin,Urine Negative (Negative); Blood, Urine Large mg/dL (Negative); Glucose,Urine (UA) 50 mg/dL (Negative); Ketones,Urine 80 mg/dL (Negative); Mucus,Urine Occasional /LPF (Occasional); Nitrite,Urine Negative (Negative); Protein,Urine 30 MG/DL; RBC,Urine 288 /HPF (0-4); Squamous Epithelial Cell,Urine Occasional /HPF (0-10); Urine Color Yellow (Yellow); Urine Specific Gravity 1.018 (1.001-1.035); Urine Urobilinogen < 2.0 EU/DL (0.2-1.0); WBC,Urine 43 /HPF (0-6)
[2019-07-02] MEDS ORDERED: PIPERACILLIN/TAZOBACTAM 3,375 MG in SODIUM CHLORIDE 0.9% 100 ML IV SCH (11:00)
[2019-07-02] MEDS: cefTRIAXone 2,000 MG in SYRINGE 1 EACH IV SCH ×2 (12:15→23:18)
[2019-07-02] MEDS: AMPICILLIN INJ 2,000 MG in SODIUM CHLORIDE 0.9% 100 ML IV SCH ×3 (13:54→21:00)
[2019-07-02] MEDS: LACTATED RINGERS 1,000 ML IV SCH (13:54)
[2019-07-02] MEDS ORDERED: hydrALAZINE 20 MG/1 ML VIAL IV PRN (13:58)
[2019-07-02] MEDS ORDERED: AMINO ACIDS/DEXT/LYTES 4.25-5% 2,000 ML IV SCH (14:00)
[2019-07-02] MEDS ORDERED: ACETAMINOPHEN 650 MG SUPP RECTAL PRN (14:19)
[2019-07-02] MEDS: ACYCLOVIR INJ 500 MG in SODIUM CHLORIDE 0.9% 100 ML IV SCH ×2 (15:05→22:14)
[2019-07-02] MEDS: cloNIDine 0.3 MG/24 HR PATCH TRANSDERM SCH (15:11)
[2019-07-02] MEDS: VANCOMYCIN INJ 750 MG in SODIUM CHLORIDE 0.9% 250 ML IV SCH (17:08)
[2019-07-02 17:27] LABS: INR 1.1; PT Patient Result 11.9 SECS (9.6-12.2); Partial Thromboplastin Time 25.8 SECS (20.8-36.0)
[2019-07-02] MEDS ORDERED: ENOXAPARIN 40 MG/0.4 ML SYRINGE SUBCUT SCH (21:00)
[2019-07-02] MEDS: ATORVASTATIN 20 MG TABLET PO SCH (21:06)
[2019-07-02] MEDS: LACOSAMIDE INJ 200 MG in SODIUM CHLORIDE 0.9% 50 ML IV SCH (21:38)
[2019-07-03] MEDS: AMPICILLIN INJ 2,000 MG in SODIUM CHLORIDE 0.9% 100 ML IV SCH ×7 (02:30→21:25)
[2019-07-03] MEDS: ACYCLOVIR INJ 500 MG in SODIUM CHLORIDE 0.9% 100 ML IV SCH ×3 (04:39→23:09)
[2019-07-03 05:07] LABS: Basophils % 0.4 % (0.0-0.8); Eosinophils % 0.2 % (0.00-10.9); Hematocrit 30.2 VOL% (35.7-47.0); Hemoglobin 9.9 GM/DL (12.0-16.0); Immature Granulocytes % 0.4 %; Immature Granulocytes Absolute 0.04 #; Lymphocytes # 1.5 10*3/uL (1.4-4.0); Lymphocytes % 15.9 % (21.3-54.2); Mean Corpuscular HGB Conc 32.8 GM/DL (32-36); Mean Corpuscular Volume 89.9 FL (87-102); Mean Platelet Volume 11.3 FL (9.6-12.0); Monocytes % 16.8 % (1.7-12.7); Neutrophils % 66.3 % (38.7-73.9); Platelet Count 181 T/CUMM (130-400); Red Blood Count 3.36 MC/CUMM (3.8-5.5); Red Cell Distribution Width 12.9 % (9.3-17.3); White Blood Count 9.7 T/CUMM (4-12)
[2019-07-03 05:42] LABS: Albumin 1.9 G/DL (3.4-5.0); Bilirubin,Total 0.7 MG/DL (0.2-1.0); Calcium 7.5 MG/DL (8.5-10.1); Total Protein 4.1 G/DL (6.4-8.3)
[2019-07-03 06:12] LABS: Anisocytosis Slight; Lymphocytes 12 % (20-55); Platelet Estimate Normal; Segmented Neutrophils 76 % (50-85); Total Cells Counted 100
[2019-07-03 06:13] LABS: Poikilocytosis Slight; Spherocytes Slight
[2019-07-03] MEDS: LACTATED RINGERS 1,000 ML IV SCH ×2 (06:19→23:10)
[2019-07-03] MEDS ORDERED: MAGNESIUM SULF RIDER 4 GM in PREMIX 1 EACH IV ONE (07:39)
[2019-07-03] MEDS: INSULIN LISPRO 100 UNIT/ML SUBCUT SCH ×4 (08:15→21:35)
[2019-07-03] MEDS: LACOSAMIDE INJ 200 MG in SODIUM CHLORIDE 0.9% 50 ML IV SCH ×2 (09:25→23:10)
[2019-07-03] MEDS: MAGNESIUM CHLORIDE 64 MG TABLET PO SCH ×2 (09:46→21:34)
[2019-07-03] MEDS: POTASSIUM CHLORIDE 8 MEQ CAPSULE PO SCH (09:46)
[2019-07-03] MEDS: carvediloL 25 MG TABLET PO SCH ×2 (09:46→16:37)
[2019-07-03] MEDS: FERROUS SULFATE 325 MG TABLET PO SCH (09:46)
[2019-07-03] MEDS: VANCOMYCIN INJ 750 MG in SODIUM CHLORIDE 0.9% 250 ML IV SCH ×2 (10:23→22:09)
[2019-07-03] MEDS: cefTRIAXone 2,000 MG in SYRINGE 1 EACH IV SCH ×2 (11:58→23:51)
[2019-07-03] MEDS: ASPIRIN EC 325 MG TABLET PO SCH (15:09)
[2019-07-03] MEDS: ATORVASTATIN 20 MG TABLET PO SCH (21:34)
[2019-07-04] MEDS: LACTATED RINGERS 1,000 ML IV SCH ×3 (02:37→17:19)
[2019-07-04] MEDS: AMPICILLIN INJ 2,000 MG in SODIUM CHLORIDE 0.9% 100 ML IV SCH ×4 (04:05→14:22)
[2019-07-04] MEDS: ACYCLOVIR INJ 500 MG in SODIUM CHLORIDE 0.9% 100 ML IV SCH ×2 (05:02→14:03)
[2019-07-04 05:40] LABS: Basophils # 0.1 10*3/uL (0.0-0.2); Basophils % 0.5 % (0.0-0.8); Eosinophils # 0.2 10*3/uL (0.0-0.87); Eosinophils % 2.4 % (0.00-10.9); Hematocrit 33.6 VOL% (35.7-47.0); Hemoglobin 11.2 GM/DL (12.0-16.0); Immature Granulocytes % 0.4 %; Immature Granulocytes Absolute 0.04 #; Lymphocytes # 1.2 10*3/uL (1.4-4.0); Lymphocytes % 11.6 % (21.3-54.2); Mean Corpuscular HGB Conc 33.3 GM/DL (32-36); Mean Corpuscular Volume 88.9 FL (87-102); Mean Platelet Volume 10.7 FL (9.6-12.0); Monocytes % 12.6 % (1.7-12.7); Neutrophils % 72.5 % (38.7-73.9); Platelet Count 202 T/CUMM (130-400); Red Blood Count 3.78 MC/CUMM (3.8-5.5); Red Cell Distribution Width 12.5 % (9.3-17.3); White Blood Count 10.1 T/CUMM (4-12)
[2019-07-04 05:56] LABS: Calcium 7.8 MG/DL (8.5-10.1); Osmolality,Calculated 279.3 MOS/KG (273-304)
[2019-07-04 06:00] LABS: Albumin 2.8 G/DL (3.4-5.0); Bilirubin,Total 0.4 MG/DL (0.2-1.0); Calcium 7.9 MG/DL (8.5-10.1); Osmolality,Calculated 283.8 MOS/KG (273-304); Total Protein 6.5 G/DL (6.4-8.3)
[2019-07-04] MEDS ORDERED: POTASSIUM CHLORIDE RIDER 10 MEQ in PREMIX 1 EACH IV PRN (07:16)
[2019-07-04] MEDS: INSULIN LISPRO 100 UNIT/ML SUBCUT SCH ×4 (08:27→21:51)
[2019-07-04] MEDS: ASPIRIN EC 325 MG TABLET PO SCH (10:00)
[2019-07-04] MEDS: POTASSIUM CHLORIDE 8 MEQ CAPSULE PO SCH (10:00)
[2019-07-04] MEDS: carvediloL 25 MG TABLET PO SCH ×2 (10:00→17:42)
[2019-07-04] MEDS: MAGNESIUM CHLORIDE 64 MG TABLET PO SCH ×2 (10:00→21:51)
[2019-07-04] MEDS: FERROUS SULFATE 325 MG TABLET PO SCH (10:00)
[2019-07-04] MEDS: VANCOMYCIN INJ 750 MG in SODIUM CHLORIDE 0.9% 250 ML IV SCH ×2 (10:08→22:00)
[2019-07-04] MEDS: LACOSAMIDE INJ 200 MG in SODIUM CHLORIDE 0.9% 50 ML IV SCH (11:56)
[2019-07-04] MEDS: amLODIPine 10 MG TABLET PO SCH (12:14)
[2019-07-04] MEDS: cefTRIAXone 2,000 MG in SYRINGE 1 EACH IV SCH (12:20)
[2019-07-04] MEDS: levETIRAcetam 250 MG TABLET PO SCH (21:51)
[2019-07-04] MEDS: ATORVASTATIN 20 MG TABLET PO SCH (21:51)
[2019-07-05] MEDS: cefTRIAXone 2,000 MG in SYRINGE 1 EACH IV SCH ×2 (00:50→11:52)
[2019-07-05 04:56] LABS: Basophils # 0.1 10*3/uL (0.0-0.2); Basophils % 0.5 % (0.0-0.8); Eosinophils # 0.5 10*3/uL (0.0-0.87); Hematocrit 34.1 VOL% (35.7-47.0); Hemoglobin 11.6 GM/DL (12.0-16.0); Immature Granulocytes % 0.2 %; Immature Granulocytes Absolute 0.02 #; Lymphocytes % 10.7 % (21.3-54.2); Mean Corpuscular Volume 87.4 FL (87-102); Mean Platelet Volume 11.1 FL (9.6-12.0); Monocytes % 13.4 % (1.7-12.7); Neutrophils % 70.2 % (38.7-73.9); Platelet Count 203 T/CUMM (130-400); Red Cell Distribution Width 12.4 % (9.3-17.3); White Blood Count 9.7 T/CUMM (4-12)
[2019-07-05 05:13] LABS: Calcium 8.4 MG/DL (8.5-10.1); Osmolality,Calculated 277.4 MOS/KG (273-304)
[2019-07-05] MEDS: LACTATED RINGERS 1,000 ML IV SCH ×2 (07:10→21:25)
[2019-07-05] MEDS: INSULIN LISPRO 100 UNIT/ML SUBCUT SCH ×4 (07:40→21:15)
[2019-07-05] MEDS: POTASSIUM CHLORIDE 20 MEQ TABLET PO SCH ×2 (07:51→11:51)
[2019-07-05] MEDS: amLODIPine 10 MG TABLET PO SCH (08:59)
[2019-07-05] MEDS: POTASSIUM CHLORIDE 8 MEQ CAPSULE PO SCH (08:59)
[2019-07-05] MEDS: carvediloL 25 MG TABLET PO SCH ×2 (08:59→17:22)
[2019-07-05] MEDS: ASPIRIN EC 325 MG TABLET PO SCH (08:59)
[2019-07-05] MEDS: levETIRAcetam 250 MG TABLET PO SCH (08:59)
[2019-07-05] MEDS: MAGNESIUM CHLORIDE 64 MG TABLET PO SCH ×2 (09:00→21:24)
[2019-07-05] MEDS: CLOPIDOGREL 75 MG TABLET PO SCH (09:00)
[2019-07-05] MEDS: FERROUS SULFATE 325 MG TABLET PO SCH (09:00)
[2019-07-05] MEDS: VANCOMYCIN INJ 750 MG in SODIUM CHLORIDE 0.9% 250 ML IV SCH (09:12)
[2019-07-05] MEDS: LORazepam 2 MG/1 ML VIAL IV PRN (18:44)
[2019-07-05] MEDS: ATORVASTATIN 20 MG TABLET PO SCH (21:24)
[2019-07-06] MEDS: cefTRIAXone 2,000 MG in SYRINGE 1 EACH IV SCH (01:09)
[2019-07-06 04:50] LABS: Basophils # 0.1 10*3/uL (0.0-0.2); Basophils % 0.6 % (0.0-0.8); Eosinophils # 0.4 10*3/uL (0.0-0.87); Eosinophils % 5.2 % (0.00-10.9); Hematocrit 34.1 VOL% (35.7-47.0); Hemoglobin 11.3 GM/DL (12.0-16.0); Immature Granulocytes % 0.6 %; Immature Granulocytes Absolute 0.05 #; Lymphocytes # 1.1 10*3/uL (1.4-4.0); Lymphocytes % 12.7 % (21.3-54.2); Mean Corpuscular HGB Conc 33.1 GM/DL (32-36); Mean Corpuscular Volume 89.3 FL (87-102); Mean Platelet Volume 10.9 FL (9.6-12.0); Monocytes % 13.4 % (1.7-12.7); Neutrophils % 67.5 % (38.7-73.9); Platelet Count 192 T/CUMM (130-400); Red Blood Count 3.82 MC/CUMM (3.8-5.5); Red Cell Distribution Width 12.4 % (9.3-17.3); White Blood Count 8.5 T/CUMM (4-12)
[2019-07-06 05:00] LABS: Calcium 8.4 MG/DL (8.5-10.1); Osmolality,Calculated 281.3 MOS/KG (273-304)
[2019-07-06] MEDS: INSULIN LISPRO 100 UNIT/ML SUBCUT SCH ×4 (07:56→20:54)
[2019-07-06] MEDS ORDERED: POTASSIUM CHLORIDE 20 MEQ TABLET PO SCH (08:30)
[2019-07-06] MEDS ORDERED: levETIRAcetam 500 MG TABLET PO SCH (09:00)
[2019-07-06] MEDS ORDERED: DIVALPROEX 500 MG TABLET PO SCH ×2 (09:00→15:00)
[2019-07-06] MEDS: amLODIPine 10 MG TABLET PO SCH (09:25)
[2019-07-06] MEDS: POTASSIUM CHLORIDE 8 MEQ CAPSULE PO SCH (09:25)
[2019-07-06] MEDS: carvediloL 25 MG TABLET PO SCH ×2 (09:26→17:45)
[2019-07-06] MEDS: FERROUS SULFATE 325 MG TABLET PO SCH (09:26)
[2019-07-06] MEDS: MAGNESIUM CHLORIDE 64 MG TABLET PO SCH ×2 (09:27→21:39)
[2019-07-06] MEDS: CLOPIDOGREL 75 MG TABLET PO SCH (09:27)
[2019-07-06] MEDS: ASPIRIN EC 325 MG TABLET PO SCH (09:27)
[2019-07-06] MEDS: LACTATED RINGERS 1,000 ML IV SCH (10:47)
[2019-07-06] MEDS: LORazepam 2 MG/1 ML VIAL IV PRN (11:29)
[2019-07-06] MEDS: cefTRIAXone 1,000 MG in SYRINGE 1 EACH IV SCH (14:10)
[2019-07-06] MEDS: VALPROIC ACID INJ 500 MG in SODIUM CHLORIDE 0.9% 100 ML IV SCH (17:24)
[2019-07-06] MEDS: ATORVASTATIN 20 MG TABLET PO SCH (21:39)
[2019-07-07] MEDS: LACTATED RINGERS 1,000 ML IV SCH ×2 (00:43→12:53)
[2019-07-07] MEDS: VALPROIC ACID INJ 500 MG in SODIUM CHLORIDE 0.9% 100 ML IV SCH ×3 (00:45→17:04)
[2019-07-07 05:02] LABS: Basophils # 0.1 10*3/uL (0.0-0.2); Basophils % 0.5 % (0.0-0.8); Eosinophils # 0.6 10*3/uL (0.0-0.87); Hematocrit 34.7 VOL% (35.7-47.0); Hemoglobin 11.5 GM/DL (12.0-16.0); Immature Granulocytes % 0.5 %; Immature Granulocytes Absolute 0.05 #; Lymphocytes # 1.2 10*3/uL (1.4-4.0); Mean Corpuscular HGB Conc 33.1 GM/DL (32-36); Mean Platelet Volume 10.7 FL (9.6-12.0); Monocytes % 11.1 % (1.7-12.7); Neutrophils % 68.9 % (38.7-73.9); Platelet Count 214 T/CUMM (130-400); Red Cell Distribution Width 12.4 % (9.3-17.3); White Blood Count 9.2 T/CUMM (4-12)
[2019-07-07 05:36] LABS: Calcium 8.6 MG/DL (8.5-10.1); Osmolality,Calculated 282.1 MOS/KG (273-304)
[2019-07-07] MEDS: INSULIN LISPRO 100 UNIT/ML SUBCUT SCH ×4 (08:25→23:26)
[2019-07-07] MEDS: amLODIPine 10 MG TABLET PO SCH (09:32)
[2019-07-07] MEDS: FERROUS SULFATE 325 MG TABLET PO SCH (09:32)
[2019-07-07] MEDS: CLOPIDOGREL 75 MG TABLET PO SCH (09:32)
[2019-07-07] MEDS: MAGNESIUM CHLORIDE 64 MG TABLET PO SCH ×2 (09:32→23:27)
[2019-07-07] MEDS: ASPIRIN EC 325 MG TABLET PO SCH (09:32)
[2019-07-07] MEDS: carvediloL 25 MG TABLET PO SCH ×2 (09:32→17:04)
[2019-07-07] MEDS: POTASSIUM CHLORIDE 8 MEQ CAPSULE PO SCH (09:32)
[2019-07-07] MEDS: POTASSIUM CHLORIDE 20 MEQ TABLET PO PRN (09:33)
[2019-07-07] MEDS: cefTRIAXone 1,000 MG in SYRINGE 1 EACH IV SCH (10:50)
[2019-07-07] MEDS: LORazepam 2 MG/1 ML VIAL IV PRN (11:01)
[2019-07-07] MEDS: ATORVASTATIN 20 MG TABLET PO SCH (23:27)
[2019-07-08] MEDS: VALPROIC ACID INJ 500 MG in SODIUM CHLORIDE 0.9% 100 ML IV SCH ×3 (01:49→17:55)
[2019-07-08] MEDS: LACTATED RINGERS 1,000 ML IV SCH (02:39)
[2019-07-08] MEDS ORDERED: BISACODYL 10 MG SUPP RECTAL ONE (07:44)
[2019-07-08] MEDS ORDERED: POLYETHYLENE GLYCOL POWDER 17 GM PACK PO PRN (07:45)
[2019-07-08] MEDS: INSULIN LISPRO 100 UNIT/ML SUBCUT SCH ×4 (08:13→22:17)
[2019-07-08] MEDS: POTASSIUM CHLORIDE 8 MEQ CAPSULE PO SCH (08:35)
[2019-07-08] MEDS: FERROUS SULFATE 325 MG TABLET PO SCH (08:35)
[2019-07-08] MEDS: ASPIRIN EC 325 MG TABLET PO SCH (08:36)
[2019-07-08] MEDS: CLOPIDOGREL 75 MG TABLET PO SCH (08:36)
[2019-07-08] MEDS: MAGNESIUM CHLORIDE 64 MG TABLET PO SCH ×2 (08:36→22:18)
[2019-07-08] MEDS: amLODIPine 10 MG TABLET PO SCH (08:36)
[2019-07-08] MEDS: carvediloL 25 MG TABLET PO SCH ×2 (08:36→17:57)
[2019-07-08] MEDS: SODIUM CHLORIDE 0.9% 1,000 ML IV SCH (08:37)
[2019-07-08] MEDS: LORazepam 2 MG/1 ML VIAL IV PRN (09:55)
[2019-07-08] MEDS ORDERED: TUBERCULIN SKIN TEST 0.1 ML SYRINGE INTRADERM ONE (12:39)
[2019-07-08] MEDS: ENOXAPARIN 30 MG/0.3 ML SYRINGE SUBCUT SCH (18:01)
[2019-07-08 18:08] LABS: Basophils % 0.4 % (0.0-0.8); Eosinophils # 0.5 10*3/uL (0.0-0.87); Eosinophils % 4.3 % (0.00-10.9); Hematocrit 34.7 VOL% (35.7-47.0); Hemoglobin 11.5 GM/DL (12.0-16.0); Immature Granulocytes % 0.6 %; Immature Granulocytes Absolute 0.06 #; Lymphocytes # 1.3 10*3/uL (1.4-4.0); Mean Corpuscular HGB Conc 33.1 GM/DL (32-36); Mean Platelet Volume 10.1 FL (9.6-12.0); Monocytes % 11.1 % (1.7-12.7); Neutrophils % 71.6 % (38.7-73.9); Platelet Count 267 T/CUMM (130-400); Red Cell Distribution Width 12.6 % (9.3-17.3); White Blood Count 10.7 T/CUMM (4-12)
[2019-07-08] MEDS: ATORVASTATIN 20 MG TABLET PO SCH (22:18)
[2019-07-09] MEDS: VALPROIC ACID INJ 500 MG in SODIUM CHLORIDE 0.9% 100 ML IV SCH ×3 (02:19→17:26)
[2019-07-09 05:39] LABS: Calcium 8.7 MG/DL (8.5-10.1); Osmolality,Calculated 280.3 MOS/KG (273-304)
[2019-07-09] MEDS: POTASSIUM CHLORIDE 8 MEQ CAPSULE PO SCH (08:28)
[2019-07-09] MEDS: CLOPIDOGREL 75 MG TABLET PO SCH (08:28)
[2019-07-09] MEDS: ASPIRIN EC 325 MG TABLET PO SCH (08:28)
[2019-07-09] MEDS: MAGNESIUM CHLORIDE 64 MG TABLET PO SCH ×2 (08:28→21:04)
[2019-07-09] MEDS: FERROUS SULFATE 325 MG TABLET PO SCH (08:28)
[2019-07-09] MEDS: amLODIPine 10 MG TABLET PO SCH (08:28)
[2019-07-09] MEDS: carvediloL 25 MG TABLET PO SCH ×2 (08:28→17:15)
[2019-07-09] MEDS: POTASSIUM CHLORIDE 20 MEQ TABLET PO PRN ×2 (08:28→17:15)
[2019-07-09] MEDS: INSULIN LISPRO 100 UNIT/ML SUBCUT SCH ×4 (08:29→21:04)
[2019-07-09] MEDS: cloNIDine 0.3 MG/24 HR PATCH TRANSDERM SCH (09:40)
[2019-07-09] MEDS: LORazepam 2 MG/1 ML VIAL IV PRN (09:49)
[2019-07-09] MEDS: ENOXAPARIN 30 MG/0.3 ML SYRINGE SUBCUT SCH (17:14)
[2019-07-09] MEDS: ATORVASTATIN 20 MG TABLET PO SCH (21:04)
[2019-07-10] MEDS: VALPROIC ACID INJ 500 MG in SODIUM CHLORIDE 0.9% 100 ML IV SCH ×2 (01:45→09:04)
[2019-07-10] MEDS: SODIUM CHLORIDE 0.9% 1,000 ML IV SCH (04:34)
[2019-07-10 06:54] LABS: Calcium 8.9 MG/DL (8.5-10.1); Osmolality,Calculated 278.3 MOS/KG (273-304)
[2019-07-10] MEDS: INSULIN LISPRO 100 UNIT/ML SUBCUT SCH ×4 (08:07→21:14)
[2019-07-10] MEDS: carvediloL 25 MG TABLET PO SCH ×2 (08:42→17:00)
[2019-07-10] MEDS: CLOPIDOGREL 75 MG TABLET PO SCH (08:42)
[2019-07-10] MEDS: POTASSIUM CHLORIDE 8 MEQ CAPSULE PO SCH (08:42)
[2019-07-10] MEDS: FERROUS SULFATE 325 MG TABLET PO SCH (08:42)
[2019-07-10] MEDS: amLODIPine 10 MG TABLET PO SCH (08:42)
[2019-07-10] MEDS: ASPIRIN EC 325 MG TABLET PO SCH (08:42)
[2019-07-10] MEDS: MAGNESIUM CHLORIDE 64 MG TABLET PO SCH ×2 (08:42→21:14)
[2019-07-10] MEDS: DIVALPROEX 500 MG TABLET PO SCH ×2 (14:30→21:14)
[2019-07-10] MEDS: LORazepam 2 MG/1 ML VIAL IV PRN (14:33)
[2019-07-10] MEDS: ENOXAPARIN 30 MG/0.3 ML SYRINGE SUBCUT SCH (17:00)
[2019-07-10] MEDS: levETIRAcetam 500 MG TABLET PO SCH (21:14)
[2019-07-10] MEDS: ATORVASTATIN 20 MG TABLET PO SCH (21:14)
[2019-07-11 05:28] LABS: Calcium 8.6 MG/DL (8.5-10.1); Osmolality,Calculated 280.3 MOS/KG (273-304)
[2019-07-11] MEDS: INSULIN LISPRO 100 UNIT/ML SUBCUT SCH ×4 (07:56→22:24)
[2019-07-11] MEDS: ASPIRIN EC 325 MG TABLET PO SCH (08:32)
[2019-07-11] MEDS: amLODIPine 10 MG TABLET PO SCH (08:33)
[2019-07-11] MEDS: levETIRAcetam 500 MG TABLET PO SCH ×2 (08:33→21:15)
[2019-07-11] MEDS: CLOPIDOGREL 75 MG TABLET PO SCH (08:33)
[2019-07-11] MEDS: POTASSIUM CHLORIDE 8 MEQ CAPSULE PO SCH (08:33)
[2019-07-11] MEDS: FERROUS SULFATE 325 MG TABLET PO SCH (08:33)
[2019-07-11] MEDS: carvediloL 25 MG TABLET PO SCH ×2 (08:33→17:59)
[2019-07-11] MEDS: MAGNESIUM CHLORIDE 64 MG TABLET PO SCH ×2 (08:33→21:14)
[2019-07-11] MEDS: DIVALPROEX 500 MG TABLET PO SCH ×3 (08:33→21:15)
[2019-07-11] MEDS: SODIUM CHLORIDE 0.9% 1,000 ML IV SCH (18:26)
[2019-07-11] MEDS: ENOXAPARIN 30 MG/0.3 ML SYRINGE SUBCUT SCH (18:43)
[2019-07-11] MEDS: ATORVASTATIN 20 MG TABLET PO SCH (21:15)
[2019-07-12 06:41] LABS: Calcium 8.7 MG/DL (8.5-10.1); Osmolality,Calculated 282.4 MOS/KG (273-304)
[2019-07-12] MEDS: INSULIN LISPRO 100 UNIT/ML SUBCUT SCH ×3 (08:12→16:00)
[2019-07-12] MEDS: ASPIRIN EC 325 MG TABLET PO SCH (09:45)
[2019-07-12] MEDS: amLODIPine 10 MG TABLET PO SCH (09:45)
[2019-07-12] MEDS: levETIRAcetam 500 MG TABLET PO SCH (09:46)
[2019-07-12] MEDS: FERROUS SULFATE 325 MG TABLET PO SCH (09:46)
[2019-07-12] MEDS: CLOPIDOGREL 75 MG TABLET PO SCH (09:46)
[2019-07-12] MEDS: MAGNESIUM CHLORIDE 64 MG TABLET PO SCH (09:46)
[2019-07-12] MEDS: POTASSIUM CHLORIDE 8 MEQ CAPSULE PO SCH (09:46)
[2019-07-12] MEDS: DIVALPROEX 500 MG TABLET PO SCH ×2 (09:47→15:13)
[2019-07-12] MEDS: carvediloL 25 MG TABLET PO SCH ×2 (09:47→17:02)
[2019-07-12] MEDS: SODIUM CHLORIDE 0.9% 1,000 ML IV SCH (15:13)
[2019-07-12 16:34] VITALS: BP 156/72
== END 2019-07-12 18:00 | DRG 57 ==
LOC: EDUNIT# → EDBD → N.ED 09:57 → SUATTDRO 13:43 → N.EDINP 13:43 → N.TELES 15:06
PROVIDERS: ADMIT Hospitalist; ATTEND Internal Medicine

== ENCOUNTER 2019-12-05 15:53 | Inpatient (IN) ==
[2019-12-05] MEDS ORDERED: SODIUM CHLORIDE 0.9% 1,000 ML IV STA (17:00)
[2019-12-05 17:14] LABS: Basophils # 0.1 10*3/uL (0.0-0.2); Basophils % 0.4 % (0.0-0.8); Eosinophils # 0.1 10*3/uL (0.0-0.87); Eosinophils % 0.5 % (0.00-10.9); Hematocrit 37.5 VOL% (35.7-47.0); Hemoglobin 12.8 GM/DL (12.0-16.0); Immature Granulocytes % 0.5 %; Immature Granulocytes Absolute 0.06 #; Lymphocytes # 1.3 10*3/uL (1.4-4.0); Lymphocytes % 10.2 % (21.3-54.2); Mean Corpuscular HGB Conc 34.1 GM/DL (32-36); Mean Corpuscular Volume 87.4 FL (87-102); Monocytes % 11.6 % (1.7-12.7); Neutrophils % 76.8 % (38.7-73.9); Platelet Count 229 T/CUMM (130-400); Red Blood Count 4.29 MC/CUMM (3.8-5.5); Red Cell Distribution Width 12.4 % (9.3-17.3); White Blood Count 13.2 T/CUMM (4-12)
[2019-12-05 17:28] LABS: Alanine Aminotransferase 68 U/L (13-56); Albumin 3.2 G/DL (3.4-5.0); Alkaline Phosphatase 56 U/L (45-117); Aspartate Amino Transferase 52 U/L (0-37); Blood Urea Nitrogen 23 MG/DL (7-18); Calcium 9.2 MG/DL (8.5-10.1); Estimated Glom Filtration Rate 51 ML/MIN; Glucose 145 MG/DL (74-106); Osmolality,Calculated 279.8 MOS/KG (273-304); Total Protein 7.9 G/DL (6.4-8.3)
[2019-12-05 18:18] LABS: Apearance,Urine CLOUDY (Clear); Bacteria,Urine Occasional /HPF (Few); Bilirubin,Urine Negative (Negative); Blood, Urine Negative (Negative); Calcium Oxalate Crystals,Urine Few /HPF (Few); Glucose,Urine (UA) Negative (Negative); Ketones,Urine 20 mg/dL (Negative); Mucus,Urine Few /LPF (Occasional); Nitrite,Urine Negative (Negative); Protein,Urine 30 MG/DL; RBC,Urine 45 /HPF (0-4); Squamous Epithelial Cell,Urine Many /HPF (0-10); Urine Color Yellow (Yellow); Urine Specific Gravity 1.023 (1.001-1.035); Urine Urobilinogen < 2.0 EU/DL (0.2-1.0); WBC,Urine 57 /HPF (0-6)
[2019-12-05] MEDS ORDERED: PIPERACILLIN/TAZOBACTAM 3,375 MG in SODIUM CHLORIDE 0.9% 100 ML IV STA (19:18)
[2019-12-05] MEDS ORDERED: AZITHROMYCIN INJ 500 MG in SODIUM CHLORIDE 0.9% 250 ML IV STA (19:18)
[2019-12-06] MEDS ORDERED: VALPROIC ACID INJ 500 MG in SODIUM CHLORIDE 0.9% 100 ML IV SCH
[2019-12-06] MEDS ORDERED: GLUCAGON 1 MG VIAL IM PRN ×3 (00:08→02:53)
[2019-12-06] MEDS ORDERED: DEXTROSE 10% 250 ML BAG IV PRN (00:12)
[2019-12-06] MEDS: VALPROIC ACID INJ 500 MG in SODIUM CHLORIDE 0.9% 100 ML IV SCH ×3 (00:28→18:04)
[2019-12-06] MEDS ORDERED: SODIUM CHLORIDE 0.9% 1,000 ML IV SCH (02:30)
[2019-12-06] MEDS ORDERED: DEXTROSE 50% 25 GM/50 ML VIAL IV PRN ×3 (02:53→17:14)
[2019-12-06] MEDS: INSULIN REGULAR 100 UNIT/ML SUBCUT SCH ×5 (06:32→23:14)
[2019-12-06 06:43] LABS: Basophils % 0.3 % (0.0-0.8); Eosinophils # 0.1 10*3/uL (0.0-0.87); Eosinophils % 0.7 % (0.00-10.9); Hematocrit 41.4 VOL% (35.7-47.0); Hemoglobin 13.5 GM/DL (12.0-16.0); Immature Granulocytes Absolute 0.11 #; Lymphocytes # 1.7 10*3/uL (1.4-4.0); Lymphocytes % 15.1 % (21.3-54.2); Mean Corpuscular HGB Conc 32.6 GM/DL (32-36); Mean Corpuscular Volume 91.8 FL (87-102); Mean Platelet Volume 10.4 FL (9.6-12.0); Neutrophils % 67.9 % (38.7-73.9); Platelet Count 204 T/CUMM (130-400); Red Blood Count 4.51 MC/CUMM (3.8-5.5); Red Cell Distribution Width 12.4 % (9.3-17.3); White Blood Count 11.1 T/CUMM (4-12)
[2019-12-06] MEDS ORDERED: levETIRAcetam 500 MG/5 ML VIAL IV ONE (08:43)
[2019-12-06] MEDS: ENOXAPARIN 40 MG/0.4 ML SYRINGE SUBCUT SCH (08:53)
[2019-12-06 10:52] LABS: Alanine Aminotransferase 62 U/L (13-56); Albumin 3.2 G/DL (3.4-5.0); Alkaline Phosphatase 56 U/L (45-117); Aspartate Amino Transferase 44 U/L (0-37); Bilirubin,Total < 0.39 MG/DL (0.2-1.0); Blood Urea Nitrogen 15 MG/DL (7-18); Calcium 8.7 MG/DL (8.5-10.1); Estimated Glom Filtration Rate 97 ML/MIN; Glucose 58 MG/DL (74-106); Osmolality,Calculated 277.4 MOS/KG (273-304); Total Protein 7.5 G/DL (6.4-8.3)
[2019-12-06] MEDS: AZITHROMYCIN INJ 500 MG in SODIUM CHLORIDE 0.9% 250 ML IV SCH (20:00)
[2019-12-07] MEDS: VALPROIC ACID INJ 500 MG in SODIUM CHLORIDE 0.9% 100 ML IV SCH ×3 (00:29→16:03)
[2019-12-07 06:08] LABS: Basophils # 0.1 10*3/uL (0.0-0.2); Basophils % 0.5 % (0.0-0.8); Eosinophils # 0.3 10*3/uL (0.0-0.87); Eosinophils % 2.7 % (0.00-10.9); Hematocrit 36.9 VOL% (35.7-47.0); Hemoglobin 12.5 GM/DL (12.0-16.0); Immature Granulocytes % 0.4 %; Immature Granulocytes Absolute 0.04 #; Lymphocytes # 1.7 10*3/uL (1.4-4.0); Lymphocytes % 16.2 % (21.3-54.2); Mean Corpuscular HGB Conc 33.9 GM/DL (32-36); Mean Corpuscular Volume 90.2 FL (87-102); Mean Platelet Volume 10.2 FL (9.6-12.0); Monocytes % 14.7 % (1.7-12.7); Neutrophils % 65.5 % (38.7-73.9); Platelet Count 213 T/CUMM (130-400); Red Blood Count 4.09 MC/CUMM (3.8-5.5); Red Cell Distribution Width 12.3 % (9.3-17.3); White Blood Count 10.3 T/CUMM (4-12)
[2019-12-07 06:39] LABS: Calcium 9.1 MG/DL (8.5-10.1)
[2019-12-07] MEDS: ENOXAPARIN 40 MG/0.4 ML SYRINGE SUBCUT SCH (08:04)
[2019-12-07] MEDS: INSULIN REGULAR 100 UNIT/ML SUBCUT SCH ×4 (08:32→21:31)
[2019-12-07] MEDS: cefTRIAXone 1,000 MG in SYRINGE 1 EACH IV SCH (09:50)
[2019-12-07] MEDS: POTASSIUM CHLORIDE 20 MEQ TABLET PO ONE ×2 (10:18→11:18)
[2019-12-07] MEDS ORDERED: ALUMINUM/MAGNES/SIMETH MAX STR 30 ML UDCUP PO PRN (10:24)
[2019-12-07] MEDS: ACETAMINOPHEN 325 MG TABLET PO PRN ×2 (11:18→17:49)
[2019-12-07] MEDS ORDERED: hydrALAZINE 20 MG/1 ML VIAL IV PRN (14:05)
[2019-12-07] MEDS: AZITHROMYCIN INJ 500 MG in SODIUM CHLORIDE 0.9% 250 ML IV SCH (21:28)
[2019-12-07] MEDS: carvediloL 25 MG TABLET PO SCH (21:31)
[2019-12-07] MEDS: DIVALPROEX 500 MG TABLET PO SCH (21:31)
[2019-12-07] MEDS: levETIRAcetam 500 MG TABLET PO SCH (21:31)
[2019-12-08 05:47] LABS: Calcium 9.1 MG/DL (8.5-10.1); Osmolality,Calculated 270.8 MOS/KG (273-304)
[2019-12-08] MEDS ORDERED: CLOPIDOGREL 75 MG TABLET PO SCH (09:00)
[2019-12-08] MEDS: INSULIN REGULAR 100 UNIT/ML SUBCUT SCH ×3 (09:27→19:49)
[2019-12-08] MEDS: cefTRIAXone 1,000 MG in SYRINGE 1 EACH IV SCH (09:27)
[2019-12-08] MEDS: DIVALPROEX 500 MG TABLET PO SCH ×3 (09:28→21:18)
[2019-12-08] MEDS: carvediloL 25 MG TABLET PO SCH ×2 (09:28→21:17)
[2019-12-08] MEDS: OLMESARTAN 20 MG TABLET PO SCH (09:28)
[2019-12-08] MEDS: FERROUS SULFATE 325 MG TABLET PO SCH (09:29)
[2019-12-08] MEDS: levETIRAcetam 500 MG TABLET PO SCH ×2 (09:29→21:18)
[2019-12-08] MEDS: POTASSIUM CHLORIDE RIDER 10 MEQ in PREMIX 1 EACH IV PRN ×2 (09:29→12:48)
[2019-12-08] MEDS: ENOXAPARIN 40 MG/0.4 ML SYRINGE SUBCUT SCH (09:29)
[2019-12-08] MEDS: ACETAMINOPHEN 325 MG TABLET PO PRN (09:41)
[2019-12-08] MEDS ORDERED: AZITHROMYCIN 250 MG TABLET PO SCH (20:00)
[2019-12-09 05:34] LABS: Calcium 9.1 MG/DL (8.5-10.1); Osmolality,Calculated 272.8 MOS/KG (273-304)
[2019-12-09] MEDS: INSULIN REGULAR 100 UNIT/ML SUBCUT SCH ×2 (08:55→13:36)
[2019-12-09] MEDS: FERROUS SULFATE 325 MG TABLET PO SCH (08:55)
[2019-12-09] MEDS: ENOXAPARIN 40 MG/0.4 ML SYRINGE SUBCUT SCH (08:55)
[2019-12-09] MEDS: cefTRIAXone 1,000 MG in SYRINGE 1 EACH IV SCH (08:55)
[2019-12-09] MEDS: OLMESARTAN 20 MG TABLET PO SCH (08:55)
[2019-12-09] MEDS: POTASSIUM CHLORIDE RIDER 10 MEQ in PREMIX 1 EACH IV PRN (09:50)
[2019-12-09 09:53] VITALS: BP 173/84
[2019-12-09] MEDS: DIVALPROEX 500 MG TABLET PO SCH (10:26)
[2019-12-09] MEDS: carvediloL 25 MG TABLET PO SCH (10:26)
[2019-12-09] MEDS: levETIRAcetam 500 MG TABLET PO SCH (10:26)
== END 2019-12-09 13:35 | DRG 56 ==
LOC: N.ED 15:53 → SUATTDRO 22:33 → N.EDINP 22:33 → N.2E 12-06 13:36
PROVIDERS: ADMIT Family Medicine; ATTEND Internal Medicine

== ENCOUNTER 2020-01-10 19:29 | Inpatient (IN) ==
[2020-01-10 20:37] LABS: Apearance,Urine Slightly Hazy (Clear); Bilirubin,Urine Negative (Negative); Blood, Urine Negative (Negative); Glucose,Urine (UA) >=500 mg/dL (Negative); Ketones,Urine 5 mg/dL (Negative); Mucus,Urine Few /LPF (Occasional); Nitrite,Urine Negative (Negative); Protein,Urine 30 MG/DL; RBC,Urine 5 /HPF (0-4); Urine Color Yellow (Yellow); Urine Specific Gravity 1.027 (1.001-1.035); WBC,Urine 18 /HPF (0-6)
[2020-01-10 20:37] LABS: Basophils % 0.1 % (0.0-0.8); Eosinophils # 0.1 10*3/uL (0.0-0.87); Eosinophils % 0.5 % (0.00-10.9); Hematocrit 33.6 VOL% (35.7-47.0); Hemoglobin 10.7 GM/DL (12.0-16.0); Immature Granulocytes % 0.7 %; Immature Granulocytes Absolute 0.08 #; Lymphocytes # 0.9 10*3/uL (1.4-4.0); Lymphocytes % 8.3 % (21.3-54.2); Mean Corpuscular HGB Conc 31.8 GM/DL (32-36); Mean Corpuscular Volume 93.9 FL (87-102); Mean Platelet Volume 9.9 FL (9.6-12.0); Monocytes % 12.3 % (1.7-12.7); Neutrophils % 78.1 % (38.7-73.9); Platelet Count 225 T/CUMM (130-400); Red Blood Count 3.58 MC/CUMM (3.8-5.5); Red Cell Distribution Width 12.8 % (9.3-17.3); White Blood Count 11.3 T/CUMM (4-12)
[2020-01-10] MEDS ORDERED: cefTRIAXone 1,000 MG in SODIUM CHLORIDE 0.9% 100 ML IV STA (20:49)
[2020-01-10 21:05] LABS: Alanine Aminotransferase 127 U/L (13-56); Albumin 1.9 G/DL (3.4-5.0); Alkaline Phosphatase 73 U/L (45-117); Aspartate Amino Transferase 178 U/L (0-37); Bilirubin,Total < 0.39 MG/DL (0.2-1.0); Blood Urea Nitrogen 39 MG/DL (7-18); Calcium 8.9 MG/DL (8.5-10.1); Estimated Glom Filtration Rate 59 ML/MIN; Ferritin 289.9 ng/ml (8-252); Glucose 316 MG/DL (74-106); Osmolality,Calculated 306.8 MOS/KG (273-304); Total Protein 7.2 G/DL (6.4-8.3)
[2020-01-10] MEDS ORDERED: LACTATED RINGERS 1,000 ML IV ONE (21:07)
[2020-01-11] MEDS ORDERED: DOCUSATE SODIUM 100 MG CAPSULE PO PRN (00:54)
[2020-01-11] MEDS ORDERED: GLUCAGON 1 MG VIAL IM PRN (00:54)
[2020-01-11] MEDS ORDERED: DEXTROSE 10% 250 ML BAG IV PRN (00:54)
[2020-01-11] MEDS ORDERED: ONDANSETRON 4 MG/2 ML VIAL IV PRN (00:54)
[2020-01-11] MEDS: ENOXAPARIN 40 MG/0.4 ML SYRINGE SUBCUT SCH (01:35)
[2020-01-11] MEDS: SODIUM CHLORIDE 0.9% 1,000 ML IV SCH ×3 (01:35→18:03)
[2020-01-11] MEDS: INSULIN LISPRO 100 UNIT/ML SUBCUT SCH ×5 (02:42→21:11)
[2020-01-11 08:00] LABS: Basophils % 0.2 % (0.0-0.8); Eosinophils # 0.2 10*3/uL (0.0-0.87); Eosinophils % 1.6 % (0.00-10.9); Hematocrit 31.6 VOL% (35.7-47.0); Hemoglobin 10.1 GM/DL (12.0-16.0); Immature Granulocytes % 0.7 %; Immature Granulocytes Absolute 0.07 #; Lymphocytes # 1.3 10*3/uL (1.4-4.0); Lymphocytes % 14.1 % (21.3-54.2); Mean Corpuscular Volume 94.6 FL (87-102); Mean Platelet Volume 10.2 FL (9.6-12.0); Monocytes % 13.3 % (1.7-12.7); Neutrophils % 70.1 % (38.7-73.9); Platelet Count 216 T/CUMM (130-400); Red Blood Count 3.34 MC/CUMM (3.8-5.5); White Blood Count 9.4 T/CUMM (4-12)
[2020-01-11 08:11] LABS: Osmolality,Calculated 293.1 MOS/KG (273-304)
[2020-01-11] MEDS: cefTRIAXone 1,000 MG in SODIUM CHLORIDE 0.9% 100 ML IV SCH (21:11)
[2020-01-12] MEDS: ENOXAPARIN 40 MG/0.4 ML SYRINGE SUBCUT SCH (01:03)
[2020-01-12] MEDS: SODIUM CHLORIDE 0.9% 1,000 ML IV SCH ×3 (02:44→17:47)
[2020-01-12 05:47] LABS: Basophils % 0.2 % (0.0-0.8); Eosinophils # 0.2 10*3/uL (0.0-0.87); Eosinophils % 1.8 % (0.00-10.9); Hematocrit 29.1 VOL% (35.7-47.0); Hemoglobin 9.5 GM/DL (12.0-16.0); Immature Granulocytes % 2.3 %; Immature Granulocytes Absolute 0.19 #; Lymphocytes # 1.4 10*3/uL (1.4-4.0); Lymphocytes % 16.7 % (21.3-54.2); Mean Corpuscular HGB Conc 32.6 GM/DL (32-36); Mean Corpuscular Volume 90.1 FL (87-102); Monocytes % 13.7 % (1.7-12.7); Neutrophils % 65.3 % (38.7-73.9); Platelet Count 199 T/CUMM (130-400); Red Blood Count 3.23 MC/CUMM (3.8-5.5); Red Cell Distribution Width 12.7 % (9.3-17.3); White Blood Count 8.3 T/CUMM (4-12)
[2020-01-12 06:24] LABS: Calcium 7.9 MG/DL (8.5-10.1); Osmolality,Calculated 288.7 MOS/KG (273-304)
[2020-01-12] MEDS: INSULIN LISPRO 100 UNIT/ML SUBCUT SCH ×4 (08:35→23:32)
[2020-01-12] MEDS: POTASSIUM CHLORIDE 20 MEQ TABLET PO PRN ×5 (09:57→23:39)
[2020-01-12] MEDS: MAGNESIUM SULF RIDER 2 GM in PREMIX 1 EACH IV PRN (10:29)
[2020-01-12] MEDS: cefTRIAXone 1,000 MG in SODIUM CHLORIDE 0.9% 100 ML IV SCH (21:10)
[2020-01-12] MEDS: MEMANTINE 5 MG TABLET PO SCH (21:10)
[2020-01-12] MEDS: ACETAMINOPHEN 325 MG TABLET PO PRN (23:39)
[2020-01-13] MEDS: ENOXAPARIN 40 MG/0.4 ML SYRINGE SUBCUT SCH (01:29)
[2020-01-13] MEDS: SODIUM CHLORIDE 0.9% 1,000 ML IV SCH ×3 (02:00→21:52)
[2020-01-13 05:52] LABS: Basophils % 0.2 % (0.0-0.8); Eosinophils # 0.2 10*3/uL (0.0-0.87); Eosinophils % 1.6 % (0.00-10.9); Hematocrit 29.4 VOL% (35.7-47.0); Hemoglobin 9.8 GM/DL (12.0-16.0); Immature Granulocytes % 2.6 %; Immature Granulocytes Absolute 0.25 #; Lymphocytes # 1.6 10*3/uL (1.4-4.0); Lymphocytes % 16.8 % (21.3-54.2); Mean Corpuscular HGB Conc 33.3 GM/DL (32-36); Mean Corpuscular Volume 89.6 FL (87-102); Mean Platelet Volume 9.5 FL (9.6-12.0); Monocytes % 12.7 % (1.7-12.7); Neutrophils % 66.1 % (38.7-73.9); Platelet Count 207 T/CUMM (130-400); Red Blood Count 3.28 MC/CUMM (3.8-5.5); Red Cell Distribution Width 12.5 % (9.3-17.3); White Blood Count 9.5 T/CUMM (4-12)
[2020-01-13 06:21] LABS: Calcium 7.8 MG/DL (8.5-10.1)
[2020-01-13] MEDS: MEMANTINE 5 MG TABLET PO SCH ×2 (09:00→21:56)
[2020-01-13] MEDS: POTASSIUM CHLORIDE 20 MEQ TABLET PO PRN ×2 (09:00→17:06)
[2020-01-13] MEDS: MAGNESIUM SULF RIDER 2 GM in PREMIX 1 EACH IV PRN (11:30)
[2020-01-13] MEDS: INSULIN LISPRO 100 UNIT/ML SUBCUT SCH ×4 (13:50→21:05)
[2020-01-13] MEDS: cefTRIAXone 1,000 MG in SODIUM CHLORIDE 0.9% 100 ML IV SCH (21:55)
[2020-01-14] MEDS: SODIUM CHLORIDE 0.9% 1,000 ML IV SCH ×4 (01:15→17:26)
[2020-01-14 06:10] LABS: Basophils % 0.3 % (0.0-0.8); Eosinophils # 0.1 10*3/uL (0.0-0.87); Hematocrit 32.4 VOL% (35.7-47.0); Hemoglobin 10.6 GM/DL (12.0-16.0); Immature Granulocytes % 1.1 %; Immature Granulocytes Absolute 0.12 #; Lymphocytes # 1.5 10*3/uL (1.4-4.0); Lymphocytes % 13.7 % (21.3-54.2); Mean Corpuscular HGB Conc 32.7 GM/DL (32-36); Mean Corpuscular Volume 90.3 FL (87-102); Mean Platelet Volume 9.3 FL (9.6-12.0); Monocytes % 11.9 % (1.7-12.7); Platelet Count 240 T/CUMM (130-400); Red Blood Count 3.59 MC/CUMM (3.8-5.5); Red Cell Distribution Width 12.6 % (9.3-17.3); White Blood Count 11.1 T/CUMM (4-12)
[2020-01-14 06:23] LABS: Osmolality,Calculated 266.1 MOS/KG (273-304)
[2020-01-14] MEDS ORDERED: METOPROLOL TARTRATE 5 MG/5 ML VIAL IV ONE (07:31)
[2020-01-14] MEDS: MAGNESIUM SULF RIDER 2 GM in PREMIX 1 EACH IV PRN (08:58)
[2020-01-14] MEDS: carvediloL 25 MG TABLET PO SCH ×2 (08:58→20:41)
[2020-01-14] MEDS: MEMANTINE 5 MG TABLET PO SCH ×2 (08:58→20:41)
[2020-01-14] MEDS: POTASSIUM CHLORIDE 20 MEQ TABLET PO PRN ×4 (08:58→16:46)
[2020-01-14] MEDS: INSULIN LISPRO 100 UNIT/ML SUBCUT SCH ×4 (09:28→20:41)
[2020-01-14] MEDS: DIVALPROEX SPRINKLE 125 MG CAPSULE PO SCH ×2 (16:46→20:36)
[2020-01-14] MEDS: cefTRIAXone 1,000 MG in SODIUM CHLORIDE 0.9% 100 ML IV SCH (20:49)
[2020-01-15] MEDS: SODIUM CHLORIDE 0.9% 1,000 ML IV SCH ×3 (01:55→19:10)
[2020-01-15 03:48] LABS: Basophils % 0.3 % (0.0-0.8); Eosinophils # 0.1 10*3/uL (0.0-0.87); Eosinophils % 0.5 % (0.00-10.9); Hematocrit 30.3 VOL% (35.7-47.0); Hemoglobin 10.4 GM/DL (12.0-16.0); Immature Granulocytes % 0.9 %; Immature Granulocytes Absolute 0.13 #; Lymphocytes % 14.5 % (21.3-54.2); Mean Corpuscular HGB Conc 34.3 GM/DL (32-36); Mean Corpuscular Volume 87.1 FL (87-102); Mean Platelet Volume 9.3 FL (9.6-12.0); Monocytes % 11.1 % (1.7-12.7); Neutrophils % 72.7 % (38.7-73.9); Platelet Count 236 T/CUMM (130-400); Red Blood Count 3.48 MC/CUMM (3.8-5.5); Red Cell Distribution Width 12.9 % (9.3-17.3); White Blood Count 13.8 T/CUMM (4-12)
[2020-01-15 04:02] LABS: Calcium 8.1 MG/DL (8.5-10.1); Osmolality,Calculated 276.4 MOS/KG (273-304)
[2020-01-15] MEDS: POTASSIUM CHLORIDE 20 MEQ TABLET PO PRN ×4 (05:19→16:22)
[2020-01-15] MEDS: INSULIN LISPRO 100 UNIT/ML SUBCUT SCH ×4 (09:31→21:42)
[2020-01-15] MEDS: DIVALPROEX SPRINKLE 125 MG CAPSULE PO SCH ×3 (09:31→21:42)
[2020-01-15] MEDS: MEMANTINE 5 MG TABLET PO SCH ×2 (09:31→21:42)
[2020-01-15] MEDS: carvediloL 25 MG TABLET PO SCH ×2 (09:31→21:42)
[2020-01-15] MEDS: cefTRIAXone 1,000 MG in SODIUM CHLORIDE 0.9% 100 ML IV SCH (21:42)
[2020-01-16] MEDS: SODIUM CHLORIDE 0.9% 1,000 ML IV SCH ×2 (04:03→11:32)
[2020-01-16 05:30] LABS: Basophils % 0.2 % (0.0-0.8); Eosinophils # 0.1 10*3/uL (0.0-0.87); Eosinophils % 0.7 % (0.00-10.9); Hematocrit 30.8 VOL% (35.7-47.0); Hemoglobin 10.4 GM/DL (12.0-16.0); Immature Granulocytes % 0.8 %; Lymphocytes # 1.7 10*3/uL (1.4-4.0); Lymphocytes % 13.8 % (21.3-54.2); Mean Corpuscular HGB Conc 33.8 GM/DL (32-36); Mean Platelet Volume 9.2 FL (9.6-12.0); Monocytes % 10.9 % (1.7-12.7); Neutrophils % 73.6 % (38.7-73.9); Platelet Count 250 T/CUMM (130-400); Red Blood Count 3.46 MC/CUMM (3.8-5.5); Red Cell Distribution Width 13.3 % (9.3-17.3); White Blood Count 12.6 T/CUMM (4-12)
[2020-01-16 05:51] LABS: Calcium 8.3 MG/DL (8.5-10.1); Osmolality,Calculated 275.5 MOS/KG (273-304)
[2020-01-16] MEDS ORDERED: ALBUTEROL 2.5 MG/3 ML NEB RESP TX PRN (07:42)
[2020-01-16] MEDS ORDERED: hydrALAZINE 20 MG/1 ML VIAL IV PRN (08:44)
[2020-01-16] MEDS: INSULIN LISPRO 100 UNIT/ML SUBCUT SCH ×4 (08:52→21:21)
[2020-01-16] MEDS ORDERED: propofoL 200 MG/20 ML VIAL IV ONE (09:00)
[2020-01-16] MEDS ORDERED: LIDOCAINE 2% 5 ML VIAL ONE (09:00)
[2020-01-16] MEDS: MAGNESIUM SULF RIDER 2 GM in PREMIX 1 EACH IV PRN (11:31)
[2020-01-16] MEDS: DIVALPROEX SPRINKLE 125 MG CAPSULE PO SCH ×3 (11:39→21:21)
[2020-01-16] MEDS: POTASSIUM CHLORIDE 20 MEQ TABLET PO PRN ×3 (11:39→15:35)
[2020-01-16] MEDS: levETIRAcetam 500 MG TABLET PO SCH ×2 (11:39→21:20)
[2020-01-16] MEDS: OLMESARTAN 20 MG TABLET PO SCH (11:39)
[2020-01-16] MEDS: FERROUS SULFATE 325 MG TABLET PO SCH (11:40)
[2020-01-16] MEDS: carvediloL 25 MG TABLET PO SCH ×2 (11:40→21:20)
[2020-01-16] MEDS: ACETAMINOPHEN 325 MG TABLET PO PRN (11:40)
[2020-01-16] MEDS: MEMANTINE 5 MG TABLET PO SCH ×2 (11:40→21:20)
[2020-01-16] MEDS ORDERED: ROSUVASTATIN 10 MG TABLET PO SCH (21:00)
[2020-01-17] MEDS: SODIUM CHLORIDE 0.9% 1,000 ML IV SCH (05:30)
[2020-01-17 06:39] LABS: Basophils % 0.2 % (0.0-0.8); Eosinophils % 0.3 % (0.00-10.9); Hematocrit 29.3 VOL% (35.7-47.0); Hemoglobin 9.9 GM/DL (12.0-16.0); Immature Granulocytes % 0.7 %; Lymphocytes # 1.2 10*3/uL (1.4-4.0); Lymphocytes % 8.9 % (21.3-54.2); Mean Corpuscular HGB Conc 33.8 GM/DL (32-36); Mean Corpuscular Volume 89.9 FL (87-102); Mean Platelet Volume 9.9 FL (9.6-12.0); Monocytes % 10.8 % (1.7-12.7); Neutrophils % 79.1 % (38.7-73.9); Platelet Count 277 T/CUMM (130-400); Red Blood Count 3.26 MC/CUMM (3.8-5.5); Red Cell Distribution Width 13.9 % (9.3-17.3); White Blood Count 13.8 T/CUMM (4-12)
[2020-01-17 07:01] LABS: Calcium 8.4 MG/DL (8.5-10.1)
[2020-01-17 07:05] LABS: Calcium 8.2 MG/DL (8.5-10.1); Osmolality,Calculated 274.7 MOS/KG (273-304)
[2020-01-17] MEDS: INSULIN LISPRO 100 UNIT/ML SUBCUT SCH ×2 (08:02→13:26)
[2020-01-17] MEDS: MEMANTINE 5 MG TABLET PO SCH (08:23)
[2020-01-17] MEDS: DIVALPROEX SPRINKLE 125 MG CAPSULE PO SCH ×2 (08:24→16:02)
[2020-01-17] MEDS: FERROUS SULFATE 325 MG TABLET PO SCH (08:24)
[2020-01-17] MEDS: carvediloL 25 MG TABLET PO SCH (08:24)
[2020-01-17] MEDS: OLMESARTAN 20 MG TABLET PO SCH (08:24)
[2020-01-17] MEDS: ACETAMINOPHEN 325 MG TABLET PO PRN (08:25)
[2020-01-17] MEDS: POTASSIUM CHLORIDE 20 MEQ TABLET PO PRN (08:25)
[2020-01-17] MEDS: levETIRAcetam 500 MG TABLET PO SCH (08:25)
[2020-01-17 12:33] VITALS: BP 161/80
== END 2020-01-17 15:50 | disposition home or self-care (01) | DRG 640 ==
LOC: EDUNIT# → N.ED 19:29 → N.EDINP 19:29 → N.TELES 23:24 → SUATTDRO 01-13 13:07
PROVIDERS: ADMIT Family Medicine; ATTEND Internal Medicine
PROC: EGDWPEG (ICD-10-PCS; 2020-01-16 11:05)